=== PATIENT | female | born 1990 | race Caucasian/White ===

== ENCOUNTER 2019-10-19 18:46 | Emergency (ER) | payer MEDICAID ==
[2019-10-19 19:39] LABS: Pregnancy Test - Urine (BHCG) POSITIVE (Negative); Pregu Control Background? CLEAR/WHITE (CLR/WHITE); Pregu Control Bar Appear? YES (CONTROL BAR); Specific Gravity 1.027 (1.002-1.036)
[2019-10-19 19:40] LABS: Bilirubin Negative (Negative); Blood, Urine Negative (Negative); Clarity Clear (Clear); Glucose, Urine (Dipstick) Normal (Negative); Leukocyte 250 Leu/uL (Negative); Nitrite Negative (Negative); Protein, Urine (Dipstick) 10 mg/dL (Neg-Trace); RBC/HPF 0-3 HPF (0-3); Urobilinogen Normal mg/dL (Less than 2)
[2019-10-19] MEDS ORDERED: Ondansetron ODT 4 MG TAB ONE (19:42)
[2019-10-19] MEDS ORDERED: Acetaminophen 325 MG TAB ONE (19:42)
[2019-10-19 19:54] LABS: Bacteria/HPF 2+ HPF (None Seen)
[2019-10-19 21:24] LABS: #Basophils 0.1 thou/uL (0.0-0.2); #Eosinphils 0.2 thou/uL (0.0-0.7); #Lymphocytes 2.2 thou/uL (1.20-3.40); #Neutrophils 8.3 thou/uL (1.40-6.50); %Basophils 0.5 % (0.0-1.0); %Eosinophils 1.7 % (0.0-10.0); %Lymphocytes 18.4 % (21.0-51.0); %Monocytes 8.8 % (0.0-10.0); %Neutrophils 70.6 % (42.0-75.0); Hemoglobin 12.4 g/dL (12.0-16.0); Mean Corpuscular HGB CONC 34.7 g/dL (32.0-36.0); Mean Corpuscular Hemoglobin 29.8 pg (27.0-31.0); Mean Corpuscular Volume 85.8 fL (78.0-98.0); Mean Platelet Volume 7.5 fL (7.4-10.4); Platelet Count 275 thou/uL (130-400); RBC Distribution Width 12.9 % (11.5-14.5); Red Blood Cell (RBC) Count 4.17 mill/uL (4.20-5.40); White Blood Cell (WBC) Count 11.8 thou/uL (4.8-10.8)
--- NOTE | 2019-10-19 21:34 | ULT ---
PELVIC ULTRASOUND: History: Vaginal bleeding. FINDINGS: Real-time imaging of the pelvis shows a single viable intrauterine with crown to rump rafael th measurements of 4.2 cm, corresponding to 11 weeks 1 day. There is a very tiny hypoechoic area josee g the posterior border of the gestational sac, potentially a tiny subchorionic bleed. heart rat e is 168 beats/minute. Right and left ovaries are normal in appearance. DOPPLER EVALUATION WITH SPECTRAL ANALYSIS: Normal flow is shown to both ovaries. IMPRESSION: 1. Single viable intrauterine with crown to rump length measurements corresponding to 11 we eks 1 day. LEORA 05-08-20. 2. Small subchorionic bleed. POS: [facility]
[2019-10-22 00:50] LABS: Chlamydia by PCR Not Detected (NotDetected); GC by PCR Not Detected (NotDetected)
== END 2019-10-19 22:52 | disposition home or self-care (01) ==
LOC: ERS 18:46
DX: O23.01 Infections of kidney in pregnancy, first trimester (principal); O23.591 Infection of other part of genital tract in pregnancy, first trimester; B96.89 Other specified bacterial agents as the cause of diseases classified elsewhere; O98.311 Other infections with a predominantly sexual mode of transmission complicating pregnancy, first trimester; A59.01 Trichomonal vulvovaginitis
CPT/HCPCS: 36415; 76856; 81003; 81015; 81025; 84702; 85025; 86900; 86901; 87086; 87480; 87491; 87510; 87591; 87660; 93976; Q0162

== ENCOUNTER 2019-11-10 19:56 | Emergency (ER) | payer MEDICAID ==
[2019-11-10 20:56] LABS: Bilirubin Negative (Negative); Blood, Urine Negative (Negative); Clarity Clear (Clear); Glucose, Urine (Dipstick) Normal (Negative); Leukocyte 25 Leu/uL (Negative); Nitrite Negative (Negative); Protein, Urine (Dipstick) Negative (Neg-Trace); RBC/HPF 0-3 HPF (0-3); Renal Epithelial 0-3 HPF (None Seen); Urobilinogen Normal mg/dL (Less than 2)
[2019-11-10 21:03] LABS: Bacteria/HPF 2+ HPF (None Seen)
== END 2019-11-10 21:28 | disposition home or self-care (01) ==
LOC: ERS 19:56
DX: O99.342 Other mental disorders complicating pregnancy, second trimester (principal); M25.552 Pain in left hip; O99.89 Other specified diseases and conditions complicating pregnancy, childbirth and the puerperium; F41.9 Anxiety disorder, unspecified; Z3A.14 14 weeks gestation of pregnancy
CPT/HCPCS: 81003; 81015; 99283

== ENCOUNTER 2019-11-23 23:58 | Emergency (ER) | payer MEDICAID ==
[2019-11-24 00:32] LABS: #Basophils 0.1 thou/uL (0.0-0.2); #Eosinphils 0.2 thou/uL (0.0-0.7); #Lymphocytes 2.5 thou/uL (1.20-3.40); #Monocytes 0.8 thou/uL (0.11-0.59); #Neutrophils 6.6 thou/uL (1.40-6.50); %Basophils 0.6 % (0.0-1.0); %Eosinophils 1.7 % (0.0-10.0); %Lymphocytes 24.9 % (21.0-51.0); %Monocytes 7.7 % (0.0-10.0); Hemoglobin 11.6 g/dL (12.0-16.0); Mean Corpuscular Hemoglobin 30.4 pg (27.0-31.0); Mean Corpuscular Volume 86.8 fL (78.0-98.0); Mean Platelet Volume 8.1 fL (7.4-10.4); Platelet Count 251 thou/uL (130-400); RBC Distribution Width 12.6 % (11.5-14.5); Red Blood Cell (RBC) Count 3.82 mill/uL (4.20-5.40); White Blood Cell (WBC) Count 10.1 thou/uL (4.8-10.8)
[2019-11-24] MEDS ORDERED: Acetaminophen 500 MG TAB ONE (00:49)
[2019-11-24 01:11] LABS: Bacteria/HPF None Seen HPF (None Seen); Bilirubin Negative (Negative); Blood, Urine Negative (Negative); Clarity Clear (Clear); Glucose, Urine (Dipstick) Normal (Negative); Leukocyte 250 Leu/uL (Negative); Nitrite Negative (Negative); Protein, Urine (Dipstick) Negative (Neg-Trace); RBC/HPF 0-3 HPF (0-3); Urobilinogen Normal mg/dL (Less than 2); WBC/HPF 21-50 HPF (0-3)
== END 2019-11-24 02:30 | disposition home or self-care (01) ==
LOC: ERS 23:58
DX: O23.41 Unspecified infection of urinary tract in pregnancy, first trimester (principal); O99.341 Other mental disorders complicating pregnancy, first trimester; F41.9 Anxiety disorder, unspecified; Z3A.13 13 weeks gestation of pregnancy
CPT/HCPCS: 36415; 81003; 81015; 84702; 85025; 86900; 86901

== ENCOUNTER 2019-12-12 22:29 | Emergency (ER) | payer MEDICAID ==
[2019-12-12 23:02] LABS: #Basophils 0.1 thou/uL (0.0-0.2); #Eosinphils 0.2 thou/uL (0.0-0.7); #Lymphocytes 2.4 thou/uL (1.20-3.40); #Monocytes 0.9 thou/uL (0.11-0.59); #Neutrophils 7.4 thou/uL (1.40-6.50); %Basophils 0.7 % (0.0-1.0); %Eosinophils 1.7 % (0.0-10.0); %Lymphocytes 21.6 % (21.0-51.0); %Monocytes 8.4 % (0.0-10.0); %Neutrophils 67.7 % (42.0-75.0); Hemoglobin 11.5 g/dL (12.0-16.0); Mean Corpuscular HGB CONC 36.3 g/dL (32.0-36.0); Mean Corpuscular Hemoglobin 31.5 pg (27.0-31.0); Mean Corpuscular Volume 86.8 fL (78.0-98.0); Mean Platelet Volume 7.9 fL (7.4-10.4); Platelet Count 231 thou/uL (130-400); RBC Distribution Width 12.3 % (11.5-14.5); Red Blood Cell (RBC) Count 3.64 mill/uL (4.20-5.40)
[2019-12-12 23:30] LABS: Bacteria/HPF None Seen HPF (None Seen); Bilirubin Negative (Negative); Blood, Urine Negative (Negative); Clarity Turbid (Clear); Glucose, Urine (Dipstick) Normal (Negative); Leukocyte 500 Leu/uL (Negative); Nitrite Negative (Negative); Protein, Urine (Dipstick) 10 mg/dL (Neg-Trace); Sperm/HPF 1+ HPF (None Seen); Urobilinogen Normal mg/dL (Less than 2); WBC/HPF Greater than 50 HPF (0-3)
== END 2019-12-12 23:49 | disposition home or self-care (01) ==
LOC: ERS 22:29
DX: O23.42 Unspecified infection of urinary tract in pregnancy, second trimester (principal); O99.342 Other mental disorders complicating pregnancy, second trimester; F41.9 Anxiety disorder, unspecified; Z3A.19 19 weeks gestation of pregnancy
CPT/HCPCS: 36415; 81003; 81015; 84702; 85025; 99284

== ENCOUNTER → 2019-12-17 | Day surgery (SDC) | payer MEDICAID ==
[~2019-12-17] MED LIST: FLU VACC QS2019-20(6MOS UP)/PF 60 MCG/0.5 ML SYRINGE IM ONE; hydrALAZINE 20 MG/ML VIAL SLOW IVP PRN
[2019-12-18 00:33] VITALS: BP 117/71; TEMP 97.7
[2019-12-18 02:03] LABS: Bacteria/HPF None Seen HPF (None Seen); Bilirubin Negative (Negative); Blood, Urine Negative (Negative); Clarity Clear (Clear); Glucose, Urine (Dipstick) Normal (Negative); Leukocyte 25 Leu/uL (Negative); Nitrite Negative (Negative); Protein, Urine (Dipstick) Negative (Neg-Trace); RBC/HPF 0-3 HPF (0-3); Urobilinogen Normal mg/dL (Less than 2)
--- NOTE | 2019-12-18 08:37 | SS ---
DATE OF ADMISSION: 12/17/2019 DATE OF DISCHARGE: 12/17/2019 CHIEF COMPLAINT: Cramping at home, decreased movement. HISTORY OF PRESENT ILLNESS: Ms. Saunders is a 29-year-old, white, G5, P4, with an estimated date of confinement of 05/08/2020, who presents complaining of cramping and stating that she has not felt her baby move over the last hour. Of note is the fact she has been treated recently for urinary tract infection. She denies associated bleeding or leakage of fluid. PAST OBSTETRICAL HISTORY: Includes 4 vaginal deliveries, all reportedly at term. PAST MEDICAL HISTORY: None. PAST SURGICAL HISTORY: None. CURRENT MEDICATIONS: vitamins and possibly Keflex, although she is uncertain about this. ALLERGIES: INCLUDE SULFA, PENICILLIN, LATEX, AND ROCEPHIN. SOCIAL HISTORY: Denies tobacco, alcohol, or drug use. FAMILY HISTORY: Unremarkable. REVIEW OF SYSTEMS: Denies nausea, vomiting, fever, chills, ruptured membranes, or vaginal bleeding. PHYSICAL EXAMINATION: VITAL SIGNS: In triage, vital signs are stable. She is afebrile. GENERAL: She is in no distress. ABDOMEN: Soft and nontender. Pelvic ultrasound shows biometry consistent with her dates with a viable [place]. Cervical length is 5.4. Urinalysis is negative with the exception of a small amount of leukocyte esterase. On microscopic analysis, no bacteria are seen. ASSESSMENT: 1. 19 and 5/7th week intrauterine . 2. No evidence of acute abdominal pain at this time. PLAN: The patient has been dismissed to home. The nature of movement prior to 20 weeks was discussed with her in detail. She was encouraged to complete the course of her antibiotics for urinary tract infection. She was also given the address of the clinic, so that she can initiate care there as she is from out of town. Job ID: [id number]
--- NOTE | 2019-12-18 09:37 | ULT ---
COMPLETE OB ULTRASOUND GREATER THAN 14 WEEKS: HISTORY: A 19-week intrauterine with cramping. FINDINGS: Single viable intrauterine fetus noted in breech presentation. Placenta is posterior, but without ev idence for overt placenta previa. Cervical length appears unremarkable. heart rate 152 b.p.m. Amniotic fluid is within normal limits. No evidence for abruptio placenta. ANATOMY: Visualized brain, 4-chamber heart, 3-vessel cord, stomach, bladder, kidneys, spine, and extremi ty regions are unremarkable. BIOMETRY: BPD 4.5 cm - 19 weeks 3 days Head circumference 16.8 cm - 19 weeks 3 days Abdominal circumference 14.5 cm - 19 weeks 6 days Femur length 2.8 cm - 18 weeks 4 days IMPRESSION: 1. Single viable intrauterine fetus 19 weeks 2 days. 2. Estimated date of confinement 05/11/2020. 3. Estimated weight 282 gm with estimated weight being at 22th percentile. Breech prese ntation. POS: [facility]
== END ==
LOC: ERS 23:32 → L&D/OP 23:32 → ERS 23:32 → EDSTATUS 23:33
PROVIDERS: ATTEND Obstetrics & Gynecology
DX: O36.8120 Decreased fetal movements, second trimester, not applicable or unspecified (principal); O99.89 Other specified diseases and conditions complicating pregnancy, childbirth and the puerperium; R10.9 Unspecified abdominal pain; Z3A.19 19 weeks gestation of pregnancy; Z88.0 Allergy status to penicillin; Z88.1 Allergy status to other antibiotic agents; Z88.2 Allergy status to sulfonamides; Z91.040 Latex allergy status
CPT/HCPCS: 76805; 81003; 81015

== ENCOUNTER 2020-01-06 23:38 | Day surgery (SDC) | payer MEDICAID ==
[2020-01-07] MEDS ORDERED: hydrALAZINE 20 MG/ML VIAL SLOW IVP PRN (00:19)
--- NOTE | 2020-01-07 00:24 | PDOC.LDHP ---
Labor and Delivery H&P Chief complaint: abdominal pain HPI: 29 y/o at 22w4d presents with cramping for the last 2 days and dizziness. Pain in abdomen is on left side, worse with movement. Dizziness episodes are random and don't occur at any particular time or last for long. She endorses burning with urination, but no frequency or urgency. Denies VB, LOF , or decreased movement. ROS neg for HEENT, cv, pulm, gi, gu, neuro, psych, skin, musculoskeletal or constitutional symptoms other than mentioned above. OB History Details: 4 prior SVDs Current complications: none Past Medical History: None Current medications: pre- vitamins Previous surgical history: none Allergies/Adverse Reactions: Allergies Allergy/AdvReac Type Severity Reaction Status Date / Time ceftriaxone [From Rocephin] Allergy Verified 01/07/20 00:29 latex Allergy Verified 01/07/20 00:29 Penicillins Allergy Verified 01/07/20 00:29 Sulfa (Sulfonamide Allergy Verified 01/07/20 00:29 Antibiotics) Social history: none - Physical Exam Vital signs reviewed and normal: yes General: NAD, resting Heart: RRR Lungs: CTAB Abdomen: gravid Extremeties: no edema FHT: category 1 [place] contractions every: none - Vaginal Exam cm dilated: 0 Effacement: 0% Station: -3 - Assessment 29 y/o at 22w4d with UTI (1+ bacteria and +LE on clean catch with dysuria) and normal discomforts of . +FHTs. - Plan -: D/c home with precautions. Advised to keep all appointments. Given Rx for Macrobid.
[2020-01-07 00:28] VITALS: BMI 31.7
[2020-01-07 00:36] LABS: Bacteria/HPF 1+ HPF (None Seen); Bilirubin Negative (Negative); Blood, Urine Negative (Negative); Clarity Clear (Clear); Glucose, Urine (Dipstick) Normal (Negative); Leukocyte 75 Leu/uL (Negative); Mucous/LPF Rare LPF (<2+); Nitrite Negative (Negative); Protein, Urine (Dipstick) Negative (Neg-Trace); RBC/HPF 0-3 HPF (0-3); Urobilinogen Normal mg/dL (Less than 2); WBC/HPF 0-3 HPF (0-3)
[2020-01-07 00:37] LABS: Urine Culture Reflex No No
[2020-01-07] MEDS ORDERED: FLU VACC QS2019-20(6MOS UP)/PF 60 MCG/0.5 ML SYRINGE IM ONE (01:00)
== END 2020-01-07 01:33 | disposition home health service (06) ==
LOC: L&D/OP 23:38
PROVIDERS: ATTEND Obstetrics & Gynecology
DX: O23.42 Unspecified infection of urinary tract in pregnancy, second trimester (principal); B96.89 Other specified bacterial agents as the cause of diseases classified elsewhere; Z3A.22 22 weeks gestation of pregnancy; Z88.0 Allergy status to penicillin; Z88.1 Allergy status to other antibiotic agents; Z88.2 Allergy status to sulfonamides; Z91.040 Latex allergy status
CPT/HCPCS: 81001; 99282

== ENCOUNTER 2020-01-10 22:42 | Day surgery (SDC) | payer MEDICAID ==
[2020-01-10 23:23] VITALS: BP 110/70; TEMP 98.7; BMI 30.9
[2020-01-10] MEDS ORDERED: hydrALAZINE 20 MG/ML VIAL SLOW IVP PRN (23:43)
--- NOTE | 2020-01-10 23:44 | PDOC.FPROB ---
FMR OB H&P: HPI - History of Present Illness Chief Complaint: Vaginal bleeding Indentification: 29yo at 23.0wks by 11.1wk US History of Present Illness: 29yo at 23.0wks by 11.1wk US presents with vaginal bleeding x2 episodes , initial episode one spot in her underwear this afternoon, the second was this evening 3 spots of blood in her underwear. She had intercourse this morning. Denies abdominal pain. Currently being treated for a UTI with Macrobid. Just moved from [place] and has not established with an OB provider here in [facility] yet. Primary Care Physician: No PNC FMR OB H&P: Current - Care : 5 Para: [id number] Gestational age: 23.0wks Dating Criteria: 11.1wk US - OB Labs Blood type: O RH: positive - First Trimester Ultrasound First trimester: 11.1wks, subchorionic hemorrhage FMR OB H&P: History - Past Medical History PMH: Denies - OB History OB History: 4 prior SVDs - Surgical History Sx History: Denies - Social History Social History: Denies alcohol, tobacco, drug use - Family History Family History: Unremarkable FMR OB H&P: Medications - Current Home Medications: Medication Instructions Recorded Confirmed Type Nitrofurantoin Monohyd/M-Cryst 100 mg PO BID 01/10/20 01/10/20 History [Macrobid] Allergies/Adverse Reactions: Allergies Allergy/AdvReac Type Severity Reaction Status Date / Time ceftriaxone [From Rocephin] Allergy Mild Rash Verified 01/10/20 23:19 latex Allergy Mild Rash Verified 01/10/20 23:19 Penicillins Allergy Mild Rash Verified 01/10/20 23:19 Sulfa (Sulfonamide Allergy Rash Verified 01/10/20 23:19 Antibiotics) FMR OB H&P: ROS - Review of Systems General: denies: fever/chills, fatigue Eyes: denies: vision changes, double vision, scotomas ENT: denies: nasal congestion, rhinorrhea, sore throat Cardiovascular: denies: chest pain, edema Respiratory: denies: cough, shortness of breath Gastrointestinal: reports: nausea. denies: vomiting Genitourinary (Female): reports: vaginal bleeding. denies: dysuria, vaginal discharge, vaginal pain, contractions Integumentary: denies: rash, lesions FMR OB H&P: Vital Signs - Maternal Vital signs: Vital Signs - First Documented Temp Pulse Resp BP 98.7 F 86 18 110/70 01/10/20 23:17 01/10/20 23:17 01/10/20 23:17 01/10/20 23:17 FMR OB H&P: Physical Exam - Physical Exam General: NAD, awake, alert and oriented HEENT: normocephalic and atraumatic, MMM, conjunctiva clear, grossly normal hearing, oropharynx clear Neck: supple, trachea midline Heart: RRR, no murmurs/rubs/gallops General: CTAB, no respiratory distress, no wheezing Abdomen: soft, gravid, fundus(cm), non-tender, bowel sound present Musculoskeletal: normal gait and station, pulses present, no misalignment/ asymmetry, no atrophy Neurological: no focal deficit Skin: no rash, good tugor Lymphatic: no unusual bruising or bleeding, no petechia Psychiatric: intact recent and remote memory, good judgement and insight, normal mood and affect - Pelvic Exam Vulva: normal hair distribution, appropriate [place] stage, no masses, no lesions , no blood Cervix: no masses, no lesions, no blood FMR OB H&P: A/P Disposition: 29yo at 23.0wks by 11.1wk US presents with vaginal bleeding - Likely 2/2 intercourse this AM vs hematuria with UTI being treated. Speculum exam with no gross blood, cervix normal appearance. Abdomen nontender. Will need to establish with OB provider. Given information for [facility] and clinic. Discussion: Date/Time: 01/10/20 0106 This H&P was discussed with Dr. Martin who agrees with the above documentation and plan. Addendum - Attending - Attending Attestation Date/Time: 01/13/20 0020 I personally evaluated the patient and discussed the management with Dr. Castillo I agree with the History, Examination, Assessment and Plan documented above with any addition or exceptions noted below.
[2020-01-11] MEDS ORDERED: FLU VACC QS2019-20(6MOS UP)/PF 60 MCG/0.5 ML SYRINGE IM ONE (09:00)
== END 2020-01-11 00:35 | disposition home or self-care (01) ==
LOC: L&D/OP 22:42
PROVIDERS: ATTEND Obstetrics & Gynecology
DX: O46.92 Antepartum hemorrhage, unspecified, second trimester (principal); Z3A.23 23 weeks gestation of pregnancy; Z88.0 Allergy status to penicillin; Z88.1 Allergy status to other antibiotic agents; Z88.2 Allergy status to sulfonamides; Z91.040 Latex allergy status
CPT/HCPCS: 99283

== ENCOUNTER 2020-01-20 20:42 | Day surgery (SDC) | payer MEDICAID ==
[2020-01-20] MEDS ORDERED: hydrALAZINE 20 MG/ML VIAL SLOW IVP PRN (21:47)
[2020-01-20 22:20] LABS: Bacteria/HPF None Seen HPF (None Seen); Bilirubin Negative (Negative); Blood, Urine Negative (Negative); Clarity Clear (Clear); Glucose, Urine (Dipstick) Normal (Negative); Leukocyte 25 Leu/uL (Negative); Mucous/LPF 1+ LPF (<2+); Nitrite Negative (Negative); Protein, Urine (Dipstick) 20 mg/dL (Neg-Trace); RBC/HPF 0-3 HPF (0-3); Squamous Epithelial 0-3 HPF (0-3); Urobilinogen Normal mg/dL (Less than 2)
--- NOTE | 2020-01-21 11:01 | SS ---
DATE OF ADMISSION: 01/20/2020 DATE OF DISCHARGE: 01/20/2020 LABOR AND DELIVERY TRIAGE NOTE. EVALUATING PHYSICIAN: Ruben Romano MD CHIEF COMPLAINT: Pelvic pressure, occasional urinary frequency. HISTORY OF PRESENT ILLNESS: Ms. Saunders is a 29-year-old white G5, P4, with an estimated date of confinement of 12/09/2019, who presents complaining of intermittent pelvic pressure as well as occasional discomfort with urination. Of note is the fact that she was seen here approximately 10 days ago and was placed on Macrobid for urinary tract infection. Prior to this, she has had no care, but states she has an appointment with Dr. Fannie Castillo on January 29. She denies ruptured membranes or vaginal bleeding. PAST OBSTETRICAL HISTORY: Vaginal delivery x4, all reportedly at term. PAST MEDICAL HISTORY: None. PAST SURGICAL HISTORY: None. CURRENT MEDICATIONS: vitamins. She states she has completed her course of Macrobid. ALLERGIES: SULFA, PENICILLIN, LATEX, ROCEPHIN. SOCIAL HISTORY: Denies tobacco, alcohol, or drug use. FAMILY HISTORY: Unremarkable. REVIEW OF SYSTEMS: Denies nausea, vomiting, fever, chills, recent travel, ruptured membranes or vaginal bleeding. PHYSICAL EXAMINATION: VITAL SIGNS: In triage, her vital signs are stable. She is afebrile. GENERAL: She is pleasant. She is in no acute distress. ABDOMEN: Soft, nontender, and gravid. PELVIC: Shows the cervix to be closed in midposition and uneffaced. The heart tones are positive. No uterine contractions are seen on the monitor. LABORATORY STUDIES: Urinalysis returned showing the urine to be clear, specific gravity of 1.030, trace protein and normal glucose, trace ketones, negative blood, negative nitrites, negative bilirubin, negative urobilinogen, trace leukocyte esterase. On microscopic, there is 0 to 3 rbc's, 11 to 20 wbc's, 0 to 3 squamous cells and no bacteria seen. ASSESSMENT: 1. A 24-week intrauterine . 2. No evidence of residual urinary tract infection. 3. No evidence of labor. PLAN: The patient will be dismissed home. Precautions were reviewed with her in detail. She was instructed to keep herself well hydrated at home and she can return for further symptoms. Job ID: [id number]
[2020-01-21] MEDS ORDERED: FLU VACC QS2019-20(6MOS UP)/PF 60 MCG/0.5 ML SYRINGE IM ONE (21:00)
== END 2020-01-20 22:45 | disposition home or self-care (01) ==
LOC: L&D/OP 20:42
PROVIDERS: ATTEND Obstetrics & Gynecology
DX: O99.89 Other specified diseases and conditions complicating pregnancy, childbirth and the puerperium (principal); R10.2 Pelvic and perineal pain; R35.0 Frequency of micturition; Z3A.24 24 weeks gestation of pregnancy; Z88.0 Allergy status to penicillin; Z88.1 Allergy status to other antibiotic agents; Z88.2 Allergy status to sulfonamides; Z91.040 Latex allergy status
CPT/HCPCS: 81003; 81015; 99282

== ENCOUNTER 2020-01-22 17:29 | Emergency (ER) | payer MEDICAID ==
[2020-01-22] MEDS ORDERED: Acetaminophen 500 MG TAB ONE (17:53)
[2020-01-22] MEDS ORDERED: Lidocaine 1% w/Epinephrine 1:100K 20 ML VIAL ONE (17:53)
== END 2020-01-22 18:44 | disposition home or self-care (01) ==
LOC: ERS 17:29
DX: L72.3 Sebaceous cyst (principal); F41.9 Anxiety disorder, unspecified
CPT/HCPCS: 10060

== ENCOUNTER 2020-02-15 20:50 | Day surgery (SDC) | payer MEDICAID, OTHER ==
[2020-02-15 21:35] VITALS: BMI 33.5
--- NOTE | 2020-02-15 22:22 | PDOC.OBTPN ---
FMR OB Triage PN:Sub - Interval History Chief Complaint: Cramping Indentification: 29 yo F Interval History: Presents for abdominal cramping. Has been going on since 02/05 since ivi FMR OB Triage PN:Obj - Maternal Vital signs: BP: [] HR: [] RR: [] Tmax: [] Pox: []% on [] Wt: [] FMR OB Triage PN:A/P Discussion: Date/Time: 02/15/202217 This H&P was discussed with [] and [] who agree with the above documentation and plan.
[2020-02-15 22:44] LABS: Bilirubin Negative (Negative); Blood, Urine Negative (Negative); Clarity Clear (Clear); Glucose, Urine (Dipstick) Normal (Negative); Leukocyte Negative Leu/uL (Negative); Nitrite Negative (Negative); Protein, Urine (Dipstick) Negative (Neg-Trace); RBC/HPF 0-3 HPF (0-3); Squamous Epithelial 0-3 HPF (0-3); Urobilinogen Normal mg/dL (Less than 2); WBC/HPF 0-3 HPF (0-3)
[2020-02-15 22:52] LABS: Bacteria/HPF 1+ HPF (None Seen); Sperm/HPF Rare HPF (None Seen)
--- NOTE | 2020-02-15 23:14 | PDOC.LDHP ---
Labor and Delivery H&P Chief complaint: other (Cramping) HPI: 29yo at 28.1 wks by LMP and 11.1 wk sono. Pt presents w/ complaint of abdominal cramping. States has been going on since 02/05 when she received a rocephin injection for gonorrhea found on her testing. Pt denies repeated intercourse since that time. Notes she does have an allergy to rocephin but took benedryl after the injection and did not have a rash. Pt denies any LOF, vaginal bleeding/discharge. Reports good FM. Denies any fever, chills, urinary complaints. Notes she has had recurrent UTI's with past pregnancies. Pt is also undergoing treatment of a vulvovaginal candidiasis infection. Denies any diarrhea or change in bowel movements. Denies the cramping feeling like contractions. Denies any other changes. Current gestational age (weeks): 28 (1) Due date: 05/08/20 Grav: 5 Para: 4 Current complications: other (gonorrhea) Abnormal US findings: No Current medications: pre-melinda vitamins, other (vaginal fluconazole) Previous surgical history: none Allergies/Adverse Reactions: Allergies Allergy/AdvReac Type Severity Reaction Status Date / Time ceftriaxone [From Rocephin] Allergy Mild Rash Verified 02/15/20 21:29 latex Allergy Mild Rash Verified 02/15/20 21:29 Penicillins Allergy Mild Rash Verified 02/15/20 21:29 Sulfa (Sulfonamide Allergy Rash Verified 02/15/20 21:29 Antibiotics) Social history: none - Physical Exam General: NAD, resting Heart: RRR Lungs: nonlabored breathing Abdomen: gravid Extremeties: no edema FHT: category 2, variability present [place] contractions every: None - OB Labs Blood type: O RH: positive Antibody Screen: negative HIV: negative RPR: negative HEPSAg: negative Rubella: immune - Assessment Supervision of Normal Third Trimester - Plan -: UA - showed no infections, did have rare sperm despite patient denying any recent intercourse Maintained Cat 2 strip throughout observation and did not have any detectable contractions Pt scheduled to have MARIANELA for gonorrhea infection later this week in follow up Advised adequate fluid hydration, regular movement, BRAT diet for short period of time, heating pads, and tylenol Discussed return precautions Addendum - Attending - Attending Attestation Date/Time: 02/15/20 5717 I personally evaluated the patient and discussed the management with Dr. Lund I agree with the History, Examination, Assessment and Plan documented above with any addition or exceptions noted below - 29yo at 28.1 wks by LMP and 11.1 wk julio presented with abdominal cramping. States has been going on since 02/05 when she received a rocephin injection for gonorrhea found on her testing. Pt denies repeated intercourse since that time. Notes she does have an allergy to rocephin but took benedryl after the injection and did not have a rash. Pt denies any LOF, vaginal bleeding/discharge. Reports good FM. Denies any fever, chills, urinary complaints. Notes she has had recurrent UTI's with past pregnancies. Pt is also undergoing treatment of a vulvovaginal candidiasis infection. Denies any diarrhea or change in bowel movements. Denies the cramping feeling like contractions. Afebrile VSS. FHTs category 1. [place]- no ctx. U/A - 1+ bacteria otherwise negative. A/P: 1) Abdominal cramping - no evidence of labor. Reassured patient; keep follow-up at clinic as scheduled. Continue hydration.
== END 2020-02-15 23:22 | disposition home or self-care (01) ==
LOC: L&D/OP 20:50
PROVIDERS: ATTEND Family Medicine
DX: O99.89 Other specified diseases and conditions complicating pregnancy, childbirth and the puerperium (principal); R10.9 Unspecified abdominal pain; O98.813 Other maternal infectious and parasitic diseases complicating pregnancy, third trimester; B37.3 Candidiasis of vulva and vagina; O98.213 Gonorrhea complicating pregnancy, third trimester; Z3A.28 28 weeks gestation of pregnancy; Z88.0 Allergy status to penicillin; Z88.1 Allergy status to other antibiotic agents; Z88.2 Allergy status to sulfonamides; Z91.040 Latex allergy status
CPT/HCPCS: 81001; 99282

== ENCOUNTER 2020-02-29 20:49 | Day surgery (SDC) | payer OTHER ==
[2020-02-29] MEDS ORDERED: hydrALAZINE 20 MG/ML VIAL SLOW IVP PRN (21:53)
[2020-02-29] MEDS ORDERED: Acetaminophen 325 MG TAB PO SCH ×2 (22:00)
--- NOTE | 2020-02-29 22:03 | PDOC.FPROB ---
FMR OB H&P: HPI - History of Present Illness Chief Complaint: fall History of Present Illness: 29yo @ 30.1wk by 11.1wk julio presents for eval after fall. States she was at usual state of health until about 1999 this evening when she tripped over her 1yr's car seat. Her caught her and she did not fall to the ground. No LOC or hitting of her head, no fall onto abdomen. No pain initially but as since developed a L-sided muscular pain, paraspinal, sharp stabbing and worse with movement, mild radiation to L hip and some tingling of L leg. She has chronic back pain and sciatic pain and this is similar but worse. Worse with movement. Has not tried anything OTC for the pain. Denies any LOF, vaginal bleeding, discharge. No contractions. Endorses good movement. Primary Care Physician: JOSE Wilson FMR OB H&P: Current - Care : 5 Para: 3104 Gestational age: 30.1 Due date: 05/08/20 Dating Criteria: 08.29wk sono - OB Labs Blood type: O RH: positive Antibody Screen: negative HIV: negative RPR: negative HepBsAg: negative Rubella: immune Gonorrhea: negative (initial positive, test of cure negative) Chlamydia: negative A1c: 5.5 FMR OB H&P: History - Past Medical History PMH: none - OB History OB History: H/o PTB at 34 wks, first due to PPROM. Declines [place]. Late to care. - INTERNAL AUDIT CONSULTANT History INTERNAL AUDIT CONSULTANT History: none - Surgical History Sx History: none - Social History Social History: Denies EtOH, Tob, Illicits - Family History Family History: DMII, Thyroid disorder FMR OB H&P: Medications - Current Home Medications: Medication Instructions Recorded Confirmed Type Ferrous Sulfate 1 tab PO DAILY 02/29/20 02/29/20 History Nitrofurantoin Monohyd/M-Cryst 1 tab PO BID 02/29/20 02/29/20 History [Macrobid 100 mg Capsule] Pnv No.95/Ferrous Fum/Folic AC 1 tab PO DAILY 02/29/20 02/29/20 History [ [place]] metroNIDAZOLE [Metronidazole] 1 tab PO BID 02/29/20 02/29/20 History Allergies/Adverse Reactions: Allergies Allergy/AdvReac Type Severity Reaction Status Date / Time ceftriaxone [From Rocephin] Allergy Mild Rash Verified 02/29/20 21:35 latex Allergy Mild Rash Verified 02/29/20 21:35 Penicillins Allergy Mild Rash Verified 02/29/20 21:35 Sulfa (Sulfonamide Allergy Rash Verified 02/29/20 21:35 Antibiotics) FMR OB H&P: ROS - Review of Systems General: denies: fever/chills, weight/appetite/sleep changes, night sweats, fatigue Eyes: denies: vision changes ENT: denies: nasal congestion, rhinorrhea Cardiovascular: denies: chest pain Respiratory: denies: cough, congestion, shortness of breath Gastrointestinal: denies: abdominal pain, cramping, nausea, vomiting Genitourinary (Female): denies: incontinence, vaginal pain, vaginal bleeding, contractions Musculoskeletal: reports: pain, tenderness Neurologic: denies: numbness, syncope, weakness, loss of counsciousness FMR OB H&P: Vital Signs - Maternal Vital signs: BP 122/63, HR 86, T 98 - Heart Tones Baseline: 140 Variability: moderate Acceleration: present Deceleration: absent [place] contractions every: none FMR OB H&P: Physical Exam - Physical Exam General: NAD, awake, alert and oriented HEENT: EOMI, MMM Neck: supple Heart: RRR, normal S1/S2, no murmurs/rubs/gallops, pulses present, no edema General: CTAB, no respiratory distress, good air movement, no rales/rhonchi, no wheezing Abdomen: soft, gravid, non-tender, bowel sound present Musculoskeletal: normal gait and station, other Deviation from normal: TTP Left paraspinal, pinpoint. Negative straight leg. Normal sensation BL. Neurological: no focal deficit Skin: no rash Lymphatic: no unusual bruising or bleeding Psychiatric: intact recent and remote memory, good judgement and insight, normal mood and affect FMR OB H&P: A/P - Problem List (1) Status: Acute Qualifiers: Weeks of gestation: 30 weeks Qualified Code(s): Z3A.30 - 30 weeks gestation of (2) Fall Status: Acute Code(s): W19.XXXA - UNSPECIFIED FALL, INITIAL ENCOUNTER Disposition: 29yo @ 30.1wk by 11.1wk sono presents for eval after fall. #SIUP s/p fall at home, lumbosacral strain - 30.1wk by 11.1wk sono - Reassuring FHT - no contractions, vaginal bleeding/LOF - endorses good movement - h/o chronic back pain and sciatica, similar but worsened sxs - Pain reproducible on L back, msk-type pain no alarm sxs present - rec tylenol with heating pad/icey hot for sxs management, and rest. Return/ED precautions as well as labor precautions given - routine f/u with primary OB as indicated - consider OMT as OP Dispo: Discharged home with conservative therapy for lumbosacral strain and routine precautions. Discussion: Date/Time: 02/29/202200 This H&P was discussed with Dr. Zhang and Dr. Drummond who agree with the above documentation and plan. Addendum - Attending - Attending Attestation Date/Time: 03/08/20 1645 I personally evaluated the patient and discussed the management with Dr. Rios on 02/29/20. I agree with the History, Examination, Assessment and Plan documented above with any addition or exceptions noted below. 29yo @ 30.1wk suffered trip and fall, caught by before any actual trauma but suffered aggravation to her lumbar area, similar to prior lumbar issues she dealt with as high school student. LS paraspinal muscles tender c/w strain. Cat I strip. Stable for d/c home with precautions, exercise. consider OM in clinic if fails to resolve with conservative mgt.
== END 2020-02-29 22:33 | disposition home or self-care (01) ==
LOC: L&D/OP 20:49
PROVIDERS: ATTEND Family Medicine
DX: O9A.213 Injury, poisoning and certain other consequences of external causes complicating pregnancy, third trimester (principal); S39.012A Strain of muscle, fascia and tendon of lower back, initial encounter; Z3A.30 30 weeks gestation of pregnancy; Z79.899 Other long term (current) drug therapy; Z88.0 Allergy status to penicillin; Z88.1 Allergy status to other antibiotic agents; Z88.2 Allergy status to sulfonamides; Z91.040 Latex allergy status; W18.41XA Slipping, tripping and stumbling without falling due to stepping on object, initial encounter
CPT/HCPCS: 99282

== ENCOUNTER 2020-03-18 17:17 | Day surgery (SDC) | payer OTHER ==
[2020-03-18 18:19] VITALS: BMI 34.7
--- NOTE | 2020-03-18 19:00 | PDOC.FPROB ---
FMR OB H&P: HPI - History of Present Illness Chief Complaint: Abdominal and vaginal twinges Indentification: 29 yo @ 32.5 wk by 11.1 wk sono History of Present Illness: 29 yo @ 32.5 wk by 11.1 wk sono presents for evaluation for vaginal pinching. Patient reports vaginal "pinching" occasional. She states it is worse when the baby moves. Reports FM, denies LOF/VB/VD. Primary Care Physician: Luh FMR OB H&P: Current - Care : 5 Para: [id number] Gestational age: 32.5 Due date: 05/08/20 Dating Criteria: 11.1 wk sono - OB Labs Blood type: O RH: positive Antibody Screen: negative HIV: negative RPR: negative HepBsAg: negative Rubella: immune Gonorrhea: negative (initial positive, MARIANELA negative) Chlamydia: negative A1c: 5.5 GBS: unknown FMR OB H&P: History - Past Medical History PMH: none - OB History OB History: H/o PTD at 34 wks, first due to PPROM. Declined Litzy. Late to care. 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: Hx of gonorrhea and chlamydia, sp MARIANELA - Surgical History Sx History: none - Social History Social History: Denie EtOH, Tobacco, drug use - Family History Family History: Father: DM2, Mother: Graves disease/thyroid disease FMR OB H&P: Medications - Current Home Medications: Medication Instructions Recorded Confirmed Type Ferrous Sulfate 1 tab PO DAILY 02/29/20 03/18/20 History Pnv No.95/Ferrous Fum/Folic AC 1 tab PO DAILY 02/29/20 03/18/20 History [ Caplet] Clotrimazole [Clotrimazole 1% 1 appful VAG HS 7 Days #1 tube 03/18/20 Rx Vaginal Cream] Allergies/Adverse Reactions: Allergies Allergy/AdvReac Type Severity Reaction Status Date / Time ceftriaxone [From Rocephin] Allergy Mild Rash Verified 02/29/20 21:35 latex Allergy Mild Rash Verified 02/29/20 21:35 Penicillins Allergy Mild Rash Verified 02/29/20 21:35 Sulfa (Sulfonamide Allergy Rash Verified 02/29/20 21:35 Antibiotics) FMR OB H&P: ROS - Review of Systems General: denies: fever/chills Eyes: reports: others (black spots in vision). denies: eye pain ENT: denies: nasal congestion, rhinorrhea Cardiovascular: denies: chest pain, palpitation Respiratory: denies: cough, congestion, shortness of breath Gastrointestinal: reports: nausea. denies: abdominal pain, vomiting, diarrhea, constipation Genitourinary (Female): reports: vaginal pain. denies: dysuria, hematuria, vaginal discharge, vaginal bleeding Musculoskeletal: reports: pain (hip pain on right, back pain on left after fall. Patient has been seeing OMT), tenderness Neurologic: denies: numbness, weakness Integumentary: denies: itching, rash Breast: denies: lumps, bumps Endocrine: denies: polydipsia, polyuria Psychological: reports: anxiety. denies: depression FMR OB H&P: Vital Signs - Maternal Vital signs: O2 98% on RA P 88 R 18 T 97.9 BP 115/74 - Heart Tones Baseline: 130 Variability: moderate Acceleration: present Deceleration: variable [place] contractions every: none FMR OB H&P: Physical Exam - Physical Exam General: NAD, awake, alert and oriented HEENT: normocephalic and atraumatic, PERRLA, MMM, grossly normal vision, grossly normal hearing Neck: supple, FROM Heart: RRR, normal S1/S2, no murmurs/rubs/gallops, pulses present, no edema General: CTAB, no respiratory distress, good air movement, no rales/rhonchi, no wheezing Abdomen: soft, gravid, non-tender, bowel sound present Musculoskeletal: pulses present, no atrophy Neurological: no focal deficit Skin: no rash, good tugor, capillary refill <2 seconds, no jaundice Lymphatic: no unusual bruising or bleeding, no purpura Psychiatric: intact recent and remote memory, good judgement and insight, normal mood and affect - Pelvic Exam Vulva: normal hair distribution, appropriate preston stage, no masses, no blood, normal rugae Deviation from normal: +chunky white vaginal discharge Cervix: no masses, no lesions, no blood SVE: /high FMR OB H&P: A/P - Problem List (1) Vaginal pain Current Visit: Yes Status: Acute Code(s): R10.2 - PELVIC AND PERINEAL PAIN (2) Current Visit: No Status: Acute Qualifiers: Weeks of gestation: 30 weeks Qualified Code(s): Z3A.30 - 30 weeks gestation of (3) Vaginal candidiasis Current Visit: Yes Status: Acute Code(s): B37.3 - CANDIDIASIS OF VULVA AND VAGINA Discussion: Date/Time: 03/18/201857 29 yo @ 32.5 wk by 11.1 wk julio presents for vaginal pinching. SIUP -VSS, FHTs reactive -counseled to make appointment for visit at [facility] tomorrow, while she is there for an OMT visit -Patient needs fasting labs, discussed that she should go fasting to her OMT appointment tomorrow and have labs afterwards Vaginal candidiasis -Vaginal exam shows chunky vaginal discharge, VP3 sent and was negative -Vaginal Clotrimazole x1 week Hx of PPROM with PVD -Not on litzy; per chart review, patient refused -SVE /high Hx of gonorrhea (this )/chlamydia (in the past) -partner treated as well, no new partners -MARIANELA negative January 2020 Chronic Headaches, unchanged -has been happening this whole and her last -Reports black spots/floaters in vision sometimes with headaches; no changes to the headache -BPs normal -Counseled to use tylenol, hydration for management Discharged patient to home: VP3 negative, per clinical picture sent topical treatment for vaginal candidiasis x1 week. Discussed with patient and discharged to home. Answered all questions. This H&P was discussed with Dr. Slade who agree with the above documentation and plan. Addendum - Attending - Attending Attestation Date/Time: 03/18/202155 I personally evaluated the patient and discussed the management with Dr. Ortega. I agree with the History, Examination, Assessment and Plan documented above with any addition or exceptions noted below.
[2020-03-18] MEDS ORDERED: hydrALAZINE 20 MG/ML VIAL SLOW IVP PRN (19:56)
== END 2020-03-18 21:30 | disposition home or self-care (01) ==
LOC: L&D/OP 17:17
DX: O99.89 Other specified diseases and conditions complicating pregnancy, childbirth and the puerperium (principal); R10.2 Pelvic and perineal pain; R10.9 Unspecified abdominal pain; R51 Headache; O09.213 Supervision of pregnancy with history of pre-term labor, third trimester; Z3A.32 32 weeks gestation of pregnancy; Z79.899 Other long term (current) drug therapy; Z88.0 Allergy status to penicillin; Z88.1 Allergy status to other antibiotic agents; Z88.2 Allergy status to sulfonamides
CPT/HCPCS: 87480; 87510; 87660

== ENCOUNTER 2020-03-28 20:37 | Day surgery (SDC) | payer OTHER ==
[2020-03-28 21:16] VITALS: BP 124/72; TEMP 98.9; BMI 34.7
[2020-03-28] MEDS ORDERED: hydrALAZINE 20 MG/ML VIAL SLOW IVP PRN (21:27)
[2020-03-28] MEDS ORDERED: Lactated Ringer's 1,000 ML IV SCH (21:30)
--- NOTE | 2020-03-28 22:18 | PDOC.FPROB ---
FMR OB H&P: Medications - Current Home Medications: Medication Instructions Recorded Confirmed Type Ferrous Sulfate 1 tab PO DAILY 02/29/20 03/28/20 History Pnv No.95/Ferrous Fum/Folic AC 1 tab PO DAILY 02/29/20 03/28/20 History [ Caplet] Clotrimazole [Clotrimazole 1% 1 appful VAG HS 7 Days #1 tube 03/18/20 03/28/20 Rx Vaginal Cream] Allergies/Adverse Reactions: Allergies Allergy/AdvReac Type Severity Reaction Status Date / Time ceftriaxone [From Rocephin] Allergy Mild Rash Verified 03/28/20 21:17 latex Allergy Mild Rash Verified 03/28/20 21:17 Penicillins Allergy Mild Rash Verified 03/28/20 21:17 Sulfa (Sulfonamide Allergy Rash Verified 03/28/20 21:17 Antibiotics) FMR OB H&P: Vital Signs - Maternal Vital signs: Vital Signs - First Documented Temp Pulse Resp BP 98.9 F 93 20 124/72 03/28/20 21:11 03/28/20 21:11 03/28/20 21:11 03/28/20 21:11 FMR OB H&P: A/P - Problem List (1) Status: Acute Qualifiers: Discussion: Date/Time: 03/28/202217 PCP: Mely HPI: Patient comes in for evaluation of contractions, although she is a difficult historian. She states I dont know what contractions feel like, I did not feel contractions with any of my previous deliveries. She states that she feels her abdomen tightening and then becoming looser. She states that the contractions make her feel winded although she is able to talk through them. She states the pains last for 1-2 minutes at a time, she is not able to quantify the time between these occurrences. She denies ROM or bleeding. She denies discharge, has been continuing to use her clotrimazole cream. She denies any vaginal intercourse or instrumentation in the last 48 hours. Feels baby moving often. Denies FRANCOIS, visual changes, SOB, or swelling. History: OB hx: , all , first at 34 wks 2/2 PPROM PMH: negative PSH: negative Meds: PNV All: penicillin, sulfa, ceftriaxone, latex Soc Hx: denies smoking, alcohol, drugs Fam Hx: denies downs, congenital defects, parents with DM2 and graves GBS: unknown Blood type: O+ Ab screen: negative HIV: neg RPR: neg Hep B: neg GC/CT: positive, with subsequent negative MARIANELA REVIEW OF SYSTEMS: Gen: no fever, chills, or sweats Neuro: no numbness/tingling, no weakness, denies headache ENT: denies congestion Eyes: no visual changes Resp: denies cough, no production, no SOB, no wheeze Card: denies chest pain, no palpitations GI: denies nausea, vomiting, diarrhea : no dysuria, no hematuria Skin: no rash, no erythema Psych: denies hx anxiety/depression Vitals: T: 98.5 R: 18 BP: 123/84 P:67 at: 98% on RA PHYSICAL EXAMINATION: General: NAD, alert and oriented x3 HEENT: EOMI, normal sclera Neck: Supple. Full ROM. Heart/Cardiovascular System: RRR, Cap refill < 3 seconds, no rub, no murmur Lungs/Respiratory System: clear to auscultation bilaterally. No increased work of breathing. Room air. Abdomen/Gastro-Intestinal System: no abdominal tenderness, normal bowel sounds, Gravid Extremities: Warm extremities. No cyanosis or edema. Neuro: No gross deficits appreciated Psychiatry: Awake, Alert and cooperative with exam Skin: no lesions, no rashes Musculoskeletal: Full ROM A/P: This is a 29 yo here for evaluation of contractions FHT: 150 baseline, mod variability, no decels, accels present [place]: contractions q3-4 on arrival, now spaced out # Pre-term labor eval - Sterile spec with no pooling, cervix appeared closed - FFN, amnisure collected - SVE: 3 - Will check cervical length and consider sending FFN based on this result - Will hold amnisure for now as no apparent ROM on spec exam, check SOPHIE - 1 L bolus LR ordered Addendum - Attending - Attending Attestation Date/Time: 03/29/202237 I personally evaluated the patient and discussed the management with Dr. Brien Ortega I agree with the History, Examination, Assessment and Plan documented above with any addition or exceptions noted below - 29 yo @34 weeks presented c/o ctx Denies LOF, VB (+) FM. Afebrile VSS. SVE 1/thick/-3 Category 1 FHTs. [place]-(+) irritability and ctx q2-5 min. USG with cervical length=3.8, vtx. SOPHIE=19. A/P: 1) IUP @34 weeks with contractions- will monitor and recheck in 2 hours. Hydrate. If no change and ctx improve will d/c home with close follow-up.
[2020-03-28] MEDS ORDERED: Morphine 4 MG/ML VIAL ONE (22:49)
[2020-03-28] MEDS ORDERED: Ondansetron ODT 4 MG TAB PO PRN (22:52)
--- NOTE | 2020-03-28 22:54 | ULT ---
Limited Obstetrical Ultrasound INDICATION: Dominant cramping at 34 weeks; evaluate cervix, fluid in growth TECHNIQUE: Grayscale, M-mode Doppler, color Doppler and spectral Doppler images were obtained. Yonatan villagomez is focused on the clinical indication. COMPARISON: Prior obstetrical ultrasound dated December 18, 2019 FINDINGS: GESTATION: Number of gestations: Single. Presentation: Cephalic. heart rate: 144 bpm. Placental location: Maternal left Previa: No evidence for previa. Cervical length: 3.9 cm SOPHIE: 19.3 cm. LIMITED SURVEY: Small echogenic focus is seen within the left ventricle that doesn't appear as bright as bone and may reflect a papillary muscle. Small echogenic focus related to trisomy cannot be entirely excluded. BIOMETRY: Biparietal diameter: 8.97cm, 36 weeks and 2 days, 95th percentile. Head circumference: 33.36 cm, 38 weeks and 1 day, 96 percentile Abdominal circumference: 30.76 cm, 34 weeks and 5 days, 71st percentile Femoral length: 6.67cm, 34 weeks and 2 days, 45th percentile Estimated weight: 2596 g +/- 384g 5 lbs. 12 oz. +/- 14 ounces, 73rd percentile The average gestational age by ultrasound is 35 weeks and 6 dayswith estimated due date of April 26. The estimated dates by clinical data is 34 weeks and 1 daywith estimated due date of May 08, 2020. IMPRESSION: 1. Single live intrauterine gestation with size and dates as above. 2. Cervical length measured between 3. 6-3.8 cm. 3. Small echogenic focus seen within the left ventricle. This does not appear as bright as the surrou nding bone and likely reflects a prominent papillary muscle. Small echogenic cardiac focus cannot be entirely excluded. Follow-up is recommended.
[2020-03-28] MEDS ORDERED: Morphine 4 MG/ML VIAL IM SCH (23:00)
--- NOTE | 2020-03-29 00:14 | PDOC.BPN ---
- Brief Progress Note Patient received Morphine and [place] Feels much better Contractions resolved CL 3.9 cm did not send Ffn 2/2 CL SOPHIE 19.3 EFW 2596, [place] 73% Considered Corticosteroids but will hold off 11/30 recent Lancet publication discussing risk for developmental delay. Does not appear to be in labor at this time. Discussed risks and precautions with patient. US showed possible echogenic foci in the heart Discussed with patient, entered [facility] referral for level II sono in [facility] EMR Patient instructed to follow up in clinic in 1-2 days, discussed importance, she has missed some appointments SVE unchanged Discharged home
== END 2020-03-29 00:30 | disposition home or self-care (01) ==
LOC: L&D/OP 20:37
PROVIDERS: ATTEND Emergency Medicine
DX: O47.03 False labor before 37 completed weeks of gestation, third trimester (principal); Z3A.34 34 weeks gestation of pregnancy; Z88.0 Allergy status to penicillin; Z88.1 Allergy status to other antibiotic agents; Z88.2 Allergy status to sulfonamides; Z91.040 Latex allergy status
CPT/HCPCS: 76815; 87081; 96372; 99284; J2270; Q0162

== ENCOUNTER 2020-03-31 21:24 | Day surgery (SDC) | payer OTHER ==
[2020-03-31 21:59] VITALS: BMI 34.7
--- NOTE | 2020-03-31 22:32 | PDOC.FPROB ---
FMR OB H&P: HPI - History of Present Illness Chief Complaint: Contractions History of Present Illness: Pt is a 29 yo F @ 34.4 wks by 11.1 wk US presents for evaluation of contractions. She states she is having contractions that are 5 minutes a part and last for 2-3 hours. She states that she feels her abdomen tightening and then becoming looser. She feels like the baby moved down 2-3 days ago and now she has hip pain from where baby is sitting. She denies ROM or bleeding. She denies discharge, she finished her clotrimazole cream last night. She denies any vaginal intercourse or instrumentation in the last 48 hours. Feels baby moving often. She denies FRANCOIS, visual changes, SOB, or swelling. Primary Care Physician: CASIMIRO Kee FMR OB H&P: Current - Care : 5 Para: 3104 Gestational age: 34.4 wks Due date: 08.29 Dating Criteria: 05/08/20 - OB Labs Blood type: O RH: positive Antibody Screen: negative HIV: negative RPR: negative HepBsAg: negative Rubella: immune Gonorrhea: negative Chlamydia: negative Pap Smear: 01/30/2020 ASCUS A1c: 5.5 GBS: negative H&H: 10.2/30.2 Platelets: 285 Additional labs: GBS: unknown Blood type: O+ Ab screen: negative HIV: neg RPR: neg Hep B: neg GC/CT: positive, with subsequent negative MARIANELA REVIEW OF SYSTEMS: Gen: no fever, chills, or sweats Neuro: no numbness/tingling, no weakness, denies headache ENT: denies congestion Eyes: no visual changes Resp: denies cough, no production, no SOB, no wheeze Card: denies chest pain, no palpitations GI: denies nausea, vomiting, diarrhea : no dysuria, no hematuria Skin: no rash, no erythema Psych: denies hx anxiety/depression Vitals: T: 98.5 R: 18 BP: 123/84 P:67 at: 98% on RA PHYSICAL EXAMINATION: General: NAD, alert and oriented x3 HEENT: EOMI, normal sclera Neck: Supple. Full ROM. Heart/Cardiovascular System: RRR, Cap refill < 3 seconds, no rub, no murmur Lungs/Respiratory System: clear to auscultation bilaterally. No increased work of breathing. Room air. Abdomen/Gastro-Intestinal System: no abdominal tenderness, normal bowel sounds, Gravid Extremities: Warm extremities. No cyanosis or edema. Neuro: No gross deficits appreciated Psychiatry: Awake, Alert and cooperative with exam Skin: no lesions, no rashes Musculoskeletal: Full ROM FMR OB H&P: History - Past Medical History PMH: Anemia - OB History OB History: 4 , first at 34 wks 2/2 PPROM - SPUDDER History SPUDDER History: 01/30/2020 ASCUS - Surgical History Sx History: None - Social History Social History: Denies tobacco, alcohol, and recreational drugs. - Family History Family History: Father: Juvenile DM, Mother: Grave's Disease FMR OB H&P: Medications - Current Home Medications: Medication Instructions Recorded Confirmed Type Ferrous Sulfate 1 tab PO DAILY 02/29/20 03/31/20 History Pnv No.95/Ferrous Fum/Folic AC 1 tab PO DAILY 02/29/20 03/31/20 History [ Caplet] Clotrimazole [Clotrimazole 1% 1 appful VAG HS 7 Days #1 tube 03/18/20 03/28/20 Rx Vaginal Cream] Allergies/Adverse Reactions: Allergies Allergy/AdvReac Type Severity Reaction Status Date / Time ceftriaxone [From Rocephin] Allergy Mild Rash Verified 03/28/20 21:17 latex Allergy Mild Rash Verified 03/28/20 21:17 Penicillins Allergy Mild Rash Verified 03/28/20 21:17 Sulfa (Sulfonamide Allergy Rash Verified 03/28/20 21:17 Antibiotics) FMR OB H&P: ROS - Review of Systems General: denies: fever/chills Eyes: denies: vision changes ENT: denies: nasal congestion, rhinorrhea, sore throat Cardiovascular: denies: chest pain, edema Respiratory: denies: cough, congestion, shortness of breath Gastrointestinal: reports: constipation. denies: abdominal pain, nausea, vomiting, diarrhea Genitourinary (Female): reports: contractions, vaginal pressure. denies: vaginal discharge, vaginal pain, vaginal bleeding Musculoskeletal: reports: pain (in her hips). denies: tenderness Neurologic: denies: numbness, weakness Integumentary: denies: itching, rash Hematologic/Lymphatic: denies: prolonged or excessive bleeding, enlarged lymph nodes FMR OB H&P: Vital Signs - Maternal Vital signs: HR: 93 BP: 124/72 T: 98.9 - Heart Tones Baseline: 150 Variability: moderate Acceleration: present Deceleration: absent Category: category 1 FMR OB H&P: Physical Exam - Physical Exam General: NAD HEENT: normocephalic and atraumatic, MMM, conjunctiva clear, no scleral icterus , normal nasal mucosa, oropharynx clear, good dention Heart: RRR, normal S1/S2, no murmurs/rubs/gallops, pulses present, no edema General: CTAB, no respiratory distress, good air movement, no rales/rhonchi, no wheezing, no retractions Abdomen: soft, gravid, non-tender, bowel sound present Musculoskeletal: pulses present, FROM in all four extremities Neurological: cranial nerves II through XII intact, no focal deficit Skin: no rash, good tugor Lymphatic: no unusual bruising or bleeding, no purpura, no petechia, no LAD Psychiatric: normal mood and affect - Pelvic Exam SVE: 1/Thick/High FMR OB H&P: A/P - Problem List (1) Current Visit: No Status: Acute Qualifiers: (2) Vaginal pain Current Visit: No Status: Acute Code(s): R10.2 - PELVIC AND PERINEAL PAIN (3) Constipation Current Visit: Yes Status: Acute Code(s): K59.00 - CONSTIPATION, UNSPECIFIED (4) Dehydration Current Visit: Yes Status: Acute Code(s): E86.0 - DEHYDRATION Disposition: Pt is a 29 yo @ 34.4 wks by 11.1 wk US here for contractions. FHT: 150 baseline, mod variability, no decels, accels present [place]: contractions q3-4 on arrival, now spaced out 1. Contractions 2/2 Dehydration * Last visit she had a sterile spec with no pooling, cervix appeared closed * Denies any LOF since then * SVE: * 03/28/20: 1/0/-3 * 03/31/20: 1/Thick/High * She drank fluids and contractions spaced out to every 10 minutes 2. Constipation Counseled on drinking plenty of water * Recommended using Miralax and Ducolax 3. Round Ligament Pain/Vaginal Pressure Discussed how towards the end of it is more common * Recommend taking Tylenol to help with the pain Dispo: D/c home with return precautions. Follow up at [facility] on 04/05. Discussion: Date/Time: 03/31/202229 This H&P was discussed with [] and [] who agree with the above documentation and plan.
[2020-03-31] MEDS ORDERED: hydrALAZINE 20 MG/ML VIAL SLOW IVP PRN (23:10)
== END 2020-03-31 22:19 | disposition home or self-care (01) ==
LOC: L&D/OP 21:24
PROVIDERS: ATTEND Family Medicine
DX: O47.03 False labor before 37 completed weeks of gestation, third trimester (principal); O99.283 Endocrine, nutritional and metabolic diseases complicating pregnancy, third trimester; E86.0 Dehydration; O99.613 Diseases of the digestive system complicating pregnancy, third trimester; K59.00 Constipation, unspecified; O99.013 Anemia complicating pregnancy, third trimester; D64.9 Anemia, unspecified; O99.89 Other specified diseases and conditions complicating pregnancy, childbirth and the puerperium; R10.2 Pelvic and perineal pain; Z3A.34 34 weeks gestation of pregnancy; Z79.899 Other long term (current) drug therapy; Z88.0 Allergy status to penicillin; Z88.1 Allergy status to other antibiotic agents; Z88.2 Allergy status to sulfonamides; Z91.040 Latex allergy status

== ENCOUNTER 2020-04-11 18:23 | Day surgery (SDC) | payer OTHER ==
[2020-04-11 19:13] VITALS: BMI 35.0
[2020-04-11] MEDS ORDERED: hydrALAZINE 20 MG/ML VIAL SLOW IVP PRN (19:37)
--- NOTE | 2020-04-11 19:38 | PDOC.FPROB ---
FMR OB H&P: HPI - History of Present Illness Chief Complaint: vaginal discharge and leakage of fluid Indentification: 29yo @ 36.1 by 11.1wk sono History of Present Illness: 29yo @ 36.1 by 11.1wk julio presents for vaginal discharge and possible loss of fluid. States she had intercourse last night, same partner. Today at approx 1800 she went to restroom to urinate and afterwards noticed clear-white, liquid vaginal discharge that was changed from previous discharge with small specks of red-tinge. She then noticed fluid running down her leg, unable to quantify amount, but no large gush of fluid. Loss of fluid has since subsided. Endorses good movement. No CP, SOB, cough, congestion, fever/chills, n/v, vision changes, FRANCOIS. Does endorse back pain and pelvic pain, possible intermittent contractions but no consistent. Does have history of gonorrhea, stated partner also had and both were treated, she has had MARIANELA negative. Primary Care Physician: JOSE Castillo/Chilango FMR OB H&P: Current - Care : 5 Para: [id number] Gestational age: 36.1 Due date: 05/08/20 Dating Criteria: 11.1wk sono - OB Labs Blood type: O RH: positive Antibody Screen: negative HIV: negative RPR: negative HepBsAg: negative Rubella: immune Gonorrhea: negative (initially positive with MARIANELA negative) Chlamydia: negative A1c: 5.5 FMR OB H&P: History - Past Medical History PMH: none - OB History OB History: H/o PTB @ 34wk, first , due to PPROM. Late to care. Gonorrhea early in with MARIANELA negative. - [employer] [address] [employer] History [address] [employer] History: Gonorrhea - Surgical History Sx History: none - Social History Social History: Denies EtOH, Tob, illicits - Family History Family History: DMII, Thyroid disorder FMR OB H&P: Medications - Current Home Medications: Medication Instructions Recorded Confirmed Type Ferrous Sulfate 1 tab PO DAILY 02/29/20 04/11/20 History Pnv No.95/Ferrous Fum/Folic AC 1 tab PO DAILY 02/29/20 04/11/20 History [ Caplet] Allergies/Adverse Reactions: Allergies Allergy/AdvReac Type Severity Reaction Status Date / Time ceftriaxone [From Rocephin] Allergy Mild Rash Verified 03/28/20 21:17 latex Allergy Mild Rash Verified 03/28/20 21:17 Penicillins Allergy Mild Rash Verified 03/28/20 21:17 Sulfa (Sulfonamide Allergy Rash Verified 03/28/20 21:17 Antibiotics) FMR OB H&P: ROS - Review of Systems General: denies: fever/chills, fatigue, recent trauma Eyes: denies: vision changes, double vision, scotomas ENT: denies: nasal congestion, rhinorrhea, sore throat Cardiovascular: denies: chest pain, palpitation, edema Respiratory: denies: cough, congestion, shortness of breath Gastrointestinal: denies: abdominal pain, nausea, vomiting, diarrhea, constipation Genitourinary (Female): reports: vaginal discharge, vaginal pain. denies: incontinence, dysuria, hesitancy, vaginal bleeding, contractions, vaginal pressure Musculoskeletal: reports: pain, stiffness Neurologic: denies: numbness, weakness, headache Integumentary: denies: rash FMR OB H&P: Vital Signs - Maternal Vital signs: RR 12, HR 80, BP 110s/80s - Heart Tones Baseline: 140 Variability: moderate Acceleration: present Deceleration: absent Category: category 1 [place] contractions every: none FMR OB H&P: Physical Exam - Physical Exam General: NAD, awake, alert and oriented HEENT: normocephalic and atraumatic, PERRLA, EOMI, MMM, conjunctiva clear, grossly normal vision, grossly normal hearing Neck: supple, trachea midline Heart: RRR, normal S1/S2, no murmurs/rubs/gallops, pulses present, no edema General: CTAB, no respiratory distress, good air movement, no rales/rhonchi, no wheezing Abdomen: soft, gravid, non-tender, bowel sound present Musculoskeletal: normal gait and station, FROM in all four extremities Neurological: no focal deficit Skin: no rash Psychiatric: intact recent and remote memory, good judgement and insight, normal mood and affect - Pelvic Exam Vulva: no lesions, no blood, normal rugae Deviation from normal: milky-white vaginal discharge Cervix: no masses, no lesions, no blood Deviation from normal: milky-white vaginal discharge, no LOF from cervix with valsalva FMR OB H&P: A/P - Problem List (1) Vaginal discharge during Current Visit: Yes Status: Acute Code(s): O26.899 - OTH RELATED CONDITIONS, UNSPECIFIED TRIMESTER; N89.8 - OTHER SPECIFIED NONINFLAMMATORY DISORDERS OF VAGINA (2) Current Visit: Yes Status: Acute Qualifiers: Weeks of gestation: 36 weeks Qualified Code(s): Z3A.36 - 36 weeks gestation of Disposition: 29yo @ 36.1 by 11.1wk julio presents for vaginal discharge and possible LOF #SIUP, 36.1wk, vaginal discharge and possible LOF - Recent sexual intercourse last night, long-time partner - H/o Gonorrhea with MARIANELA negative earlier in - Leakage of fluid on leg after urination with associated white discharge - Sterile spec exam with no significant pooling of clear fluid, no loss of cervical fluid with valsalva - milky-white vaginal discharge noted] - GC/C and VP3 obtained - straight cath UA obtained and negative - Amnisure negative - Reassuring FHT with accels, no deccels, baseline 140, no contractions - unable to obtain GBS due to iodine cleaning for cath UA, has appointment 04/14 at clinic to discuss IOL and obtain GBS swab. Dispo: No pooling on spec exam, amnisure negative, low likelihood of SROM. Reassuring FHT with no signs of active labor. Suspect infection vs normal discharge and possible loss of urine. GC/C and VP3 pending, will follow. Discharge home with labor precautions and routine OB follow up. Discussion: Date/Time: 04/11/201937 This H&P was discussed with Dr. Steele and Dr. Drummond who agree with the above documentation and plan.
[2020-04-11 19:42] LABS: Amnisure Internal Control QC ACCEPTABLE (ACCEPTABLE); Amnisure Test No Membranes Rupture (No Rupture)
[2020-04-11 20:13] LABS: Bacteria/HPF None Seen HPF (None Seen); Bilirubin Negative (Negative); Blood, Urine Negative (Negative); Clarity Clear (Clear); Glucose, Urine (Dipstick) Normal (Negative); Leukocyte Negative Leu/uL (Negative); Nitrite Negative (Negative); Protein, Urine (Dipstick) Negative (Neg-Trace); RBC/HPF 0-3 HPF (0-3); Squamous Epithelial None Seen HPF (0-3); Urobilinogen Normal mg/dL (Less than 2); WBC/HPF 0-3 HPF (0-3)
[2020-04-11 20:15] LABS: Urine Culture Reflex No No
[2020-04-13 19:25] LABS: Chlamydia by PCR Not Detected (NotDetected); GC by PCR Not Detected (NotDetected)
--- NOTE | 2020-04-15 11:01 | PDOC.BPN ---
- Brief Progress Note phone number in chart not functioning tried to call regarding negative VP3, CT/CT Patient should follow up in clinic as scheduled
== END 2020-04-11 20:40 | disposition home or self-care (01) ==
LOC: L&D/OP 18:23
PROVIDERS: ATTEND Student in an Organized Health Care Education/Training Program
DX: O26.893 Other specified pregnancy related conditions, third trimester (principal); N89.8 Other specified noninflammatory disorders of vagina; O09.213 Supervision of pregnancy with history of pre-term labor, third trimester; Z3A.36 36 weeks gestation of pregnancy; Z79.899 Other long term (current) drug therapy; Z88.0 Allergy status to penicillin; Z88.1 Allergy status to other antibiotic agents; Z88.2 Allergy status to sulfonamides; Z91.040 Latex allergy status
CPT/HCPCS: 51701; 81001; 84112; 87480; 87491; 87510; 87591; 87660; 99285

== ENCOUNTER 2020-04-27 15:41 | Day surgery (SDC) | payer OTHER ==
[2020-04-27 16:15] VITALS: BMI 36.0
[2020-04-27] MEDS ORDERED: hydrALAZINE 20 MG/ML VIAL SLOW IVP PRN (16:22)
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
[2020-04-27] MEDS ORDERED: Ondansetron ODT 8 MG TAB SL SCH (16:30)
[2020-04-27] MEDS ORDERED: Acetaminophen 500 MG TAB PO SCH (17:15)
--- NOTE | 2020-04-27 19:42 | PDOC.EVN ---
Event Note - Event Note Event Note: Cervix recheck completed at 1915. Cervix dilated to 3, 50% effected, 3+ posterior. Previously 2, 50%, 3+ at 1630. Patient denies consistent contractions. She states she wishes to go home and feels confident in her ability to return to the hospital when contractions begin to occur consistently. Return precautions discussed.
== END 2020-04-27 20:10 | disposition home or self-care (01) ==
LOC: L&D/OP 15:41
PROVIDERS: ATTEND Emergency Medicine
DX: O47.1 False labor at or after 37 completed weeks of gestation (principal); Z3A.38 38 weeks gestation of pregnancy; Z79.899 Other long term (current) drug therapy; Z88.0 Allergy status to penicillin; Z88.1 Allergy status to other antibiotic agents; Z88.2 Allergy status to sulfonamides; Z91.040 Latex allergy status
CPT/HCPCS: 99283; Q0162

== ENCOUNTER 2020-04-30 07:27 | Outpatient (CLI) | payer OTHER ==
[2020-05-01 12:17] LABS: SARS-CoV-2 MS2 Positive; SARS-CoV-2 N Gene Negative; SARS-CoV-2 S Gene Negative; SARS-CoV-2 orf1ab Negative
== END 2020-04-30 07:28 | disposition home or self-care (01) ==
LOC: LABSCS 07:27
PROVIDERS: ATTEND Family Medicine
DX: Z01.812 Encounter for preprocedural laboratory examination (principal); Z11.59 Encounter for screening for other viral diseases
CPT/HCPCS: 87635; U0003

== ENCOUNTER 2020-05-11 19:54 | Emergency (ER) | payer OTHER ==
[2020-05-11 20:42] LABS: #Basophils 0.1 thou/uL (0.0-0.2); #Eosinphils 0.5 thou/uL (0.0-0.7); #Lymphocytes 2.1 thou/uL (1.20-3.40); #Monocytes 0.7 thou/uL (0.11-0.59); #Neutrophils 5.5 thou/uL (1.40-6.50); %Basophils 0.7 % (0.0-1.0); %Eosinophils 5.3 % (0.0-10.0); %Lymphocytes 23.6 % (21.0-51.0); %Monocytes 8.3 % (0.0-10.0); %Neutrophils 62.2 % (42.0-75.0); Hemoglobin 11.1 g/dL (12.0-16.0); Mean Corpuscular HGB CONC 32.4 g/dL (32.0-36.0); Mean Corpuscular Hemoglobin 25.8 pg (27.0-31.0); Mean Corpuscular Volume 79.7 fL (78.0-98.0); Mean Platelet Volume 7.5 fL (7.4-10.4); Platelet Count 395 thou/uL (130-400); RBC Distribution Width 14.2 % (11.5-14.5); Red Blood Cell (RBC) Count 4.31 mill/uL (4.20-5.40); White Blood Cell (WBC) Count 8.8 thou/uL (4.8-10.8)
[2020-05-11 21:46] LABS: Bilirubin Negative (Negative); Blood, Urine 3+ (Negative); Clarity Turbid (Clear); Glucose, Urine (Dipstick) Normal (Negative); Ketone, Urine Negative (Negative); Leukocyte 250 Leu/uL (Negative); Mucous/LPF Rare LPF (<2+); Nitrite Negative (Negative); Protein, Urine (Dipstick) 50 mg/dL (Neg-Trace); RBC/HPF Greater than 50 HPF (0-3); Specific Gravity, Urine 1.031 (1.002-1.036); Urobilinogen Normal mg/dL (Less than 2); WBC/HPF Greater than 50 HPF (0-3); pH, Urine 5.5 (5.0-9.0)
[2020-05-11 21:51] LABS: Bacteria/HPF 3+ HPF (None Seen)
--- NOTE | 2020-05-12 08:30 | ULT ---
PELVIC ULTRASOUND: INDICATION: Vaginal delivery 1 week ago. Persistent bleeding. FINDINGS: The uterus is prominent consistent with state. Endometrium is mildly thickening. No defi nite evidence of retained products of gestation. Both ovaries are identified and appear unremarkable. Color Doppler with spectral analysis demonstrat es blood flow to both ovaries. IMPRESSION: uterus. The endometrium is mildly prominent with some blood in the endometrial cavity. N o definite retained products of gestation seen by ultrasound. POS: AGW
== END 2020-05-11 22:59 | disposition home or self-care (01) ==
LOC: ERS 19:54
DX: O72.2 Delayed and secondary postpartum hemorrhage (principal); O99.345 Other mental disorders complicating the puerperium; F41.9 Anxiety disorder, unspecified; O99.03 Anemia complicating the puerperium; Z79.1 Long term (current) use of non-steroidal anti-inflammatories (NSAID)
CPT/HCPCS: 36415; 76856; 81003; 81015; 85025; 86850; 86900; 86901

== ENCOUNTER 2020-07-07 18:50 | Emergency (ER) | payer OTHER ==
[2020-07-07 19:35] LABS: #Basophils 0.1 thou/uL (0.0-0.2); #Eosinphils 0.3 thou/uL (0.0-0.7); #Lymphocytes 2.3 thou/uL (1.20-3.40); #Monocytes 0.5 thou/uL (0.11-0.59); %Basophils 0.8 % (0.0-1.0); %Eosinophils 3.5 % (0.0-10.0); %Lymphocytes 28.2 % (21.0-51.0); %Monocytes 6.1 % (0.0-10.0); %Neutrophils 61.4 % (42.0-75.0); Hemoglobin 11.8 g/dL (12.0-16.0); Mean Corpuscular Hemoglobin 27.5 pg (27.0-31.0); Mean Platelet Volume 8.1 fL (7.4-10.4); Platelet Count 289 thou/uL (130-400); RBC Distribution Width 15.5 % (11.5-14.5); Red Blood Cell (RBC) Count 4.29 mill/uL (4.20-5.40); White Blood Cell (WBC) Count 8.1 thou/uL (4.8-10.8)
[2020-07-07] MEDS ORDERED: Ondansetron ODT 4 MG TAB ONE (19:41)
[2020-07-07 20:04] LABS: ALT (SGPT) 24 U/L (8-55); AST (SGOT) 13 U/L (5-34); Alkaline Phosphatase 107 U/L (40-110); Anion Gap 14 mmol/L (10-20); BUN (Urea Nitrogen) 17 mg/dL (7.0-18.7); Bilirubin, Total 0.2 mg/dL (0.2-1.2); Calc. Creatinine Clearance 0 mL/min (70-130); Calcium 8.8 mg/dL (7.8-10.44); Carbon Dioxide 23 mmol/L (22-29); Chloride 106 mmol/L (98-107); Estimated GFR-MDRD 75; Globulin 3.2 g/dL (2.4-3.5); Glucose 108 mg/dL (70-105); Lipase 38 U/L (8-78); Potassium 4.3 mmol/L (3.5-5.1); Protein, Total 7.2 g/dL (6.0-8.3); Sodium 139 mmol/L (136-145)
[2020-07-07] MEDS ORDERED: Ketorolac Tromethamine 30 MG/ML VIAL ONE (20:04)
[2020-07-07 20:33] LABS: Pregnancy Test - Urine (BHCG) Negative (Negative); Specific Gravity 1.019 (1.002-1.036)
[2020-07-07 20:34] LABS: Pregu Control Background? CLEAR/WHITE (CLR/WHITE); Pregu Control Bar Appear? YES (CONTROL BAR)
[2020-07-07 20:35] LABS: Bilirubin Negative (Negative); Blood, Urine 3+ (Negative); Clarity Extra Turbid (Clear); Glucose, Urine (Dipstick) Normal (Negative); Ketone, Urine Negative (Negative); Leukocyte 75 Leu/uL (Negative); Nitrite Negative (Negative); Protein, Urine (Dipstick) 30 mg/dL (Neg-Trace); RBC/HPF Greater than 50 HPF (0-3); Specific Gravity, Urine 1.019 (1.002-1.036); Urobilinogen Normal mg/dL (Less than 2)
[2020-07-07 20:37] LABS: Bacteria/HPF 1+ HPF (None Seen)
== END 2020-07-07 20:59 | disposition home or self-care (01) ==
LOC: ERS 18:50
DX: N39.0 Urinary tract infection, site not specified (principal); R11.2 Nausea with vomiting, unspecified; F41.9 Anxiety disorder, unspecified; Z87.891 Personal history of nicotine dependence
CPT/HCPCS: 36415; 80053; 81003; 81015; 81025; 83690; 85025; 96372; 99284; J1885; Q0162

== ENCOUNTER 2020-08-23 13:21 | Emergency (ER) | payer OTHER ==
[2020-08-23] MEDS ORDERED: Lidocaine Viscous Sol 2% 15 ml UD Cup ONE (14:21)
== END 2020-08-23 14:54 | disposition home or self-care (01) ==
LOC: ERS 13:21
DX: J02.9 Acute pharyngitis, unspecified (principal); D64.9 Anemia, unspecified; F41.9 Anxiety disorder, unspecified; F17.210 Nicotine dependence, cigarettes, uncomplicated
CPT/HCPCS: 87081; 87430; 99283

== ENCOUNTER 2020-09-05 21:29 | Emergency (ER) | payer OTHER ==
--- NOTE | 2020-09-05 22:26 | CT ---
CT BRAIN WITHOUT CONTRAST: HISTORY: Injury, headache FINDINGS: No evidence of acute infarct, hemorrhage, midline shift or abnormal extra-axial fluid collections is seen. The ventricular size is appropriate and the basilar cisterns are patent. The bony calvarium is intact. The visualized paranasal sinuses and mastoid air cells are well aerated. There is a small right frontal scalp contusion and adjacent laceration. IMPRESSION: No CT evidence of acute intracranial process.
[2020-09-05] MEDS ORDERED: Lidocaine 1% w/Epinephrine 1:100K 20 ML VIAL ONE (22:49)
[2020-09-05] MEDS ORDERED: Morphine 4 MG/ML VIAL ONE (22:52)
[2020-09-05] MEDS ORDERED: Boostrix 0.5 ML (Tdap) VIAL ONE (23:31)
[2020-09-05] MEDS ORDERED: diphenhydrAMINE 25 MG CAP ONE ×2 (23:35→23:36)
== END 2020-09-05 23:40 | disposition home or self-care (01) ==
LOC: ERS 21:29
DX: S06.0X9A Concussion with loss of consciousness of unspecified duration, initial encounter (principal); S01.01XA Laceration without foreign body of scalp, initial encounter; D64.9 Anemia, unspecified; F41.9 Anxiety disorder, unspecified; F17.210 Nicotine dependence, cigarettes, uncomplicated; W01.198A Fall on same level from slipping, tripping and stumbling with subsequent striking against other object, initial encounter
CPT/HCPCS: 70450; 90715; 96374; J2270; Q0163

== ENCOUNTER 2020-09-12 10:15 | Emergency (ER) | payer OTHER | END 2020-09-12 12:35 | disposition left against medical advice (07) | LOC: ERS 10:15 | DX: Z53.21 Procedure and treatment not carried out due to patient leaving prior to being seen by health care provider (principal) ==

== ENCOUNTER 2020-09-12 14:27 | Emergency (ER) | payer OTHER ==
[2020-09-12] MEDS ORDERED: Lidocaine 4% Cream 5 GM TUBE w/ Tegaderm ONE (15:04)
[2020-09-12] MEDS ORDERED: Ibuprofen 200 MG TAB ONE (15:04)
== END 2020-09-12 16:10 | disposition home or self-care (01) ==
LOC: ERS 14:27
DX: S01.01XD Laceration without foreign body of scalp, subsequent encounter (principal); F41.9 Anxiety disorder, unspecified; F17.210 Nicotine dependence, cigarettes, uncomplicated; X58.XXXD Exposure to other specified factors, subsequent encounter

== ENCOUNTER 2020-11-06 22:46 | Emergency (ER) | payer OTHER ==
[2020-11-06 23:15] LABS: Bilirubin Negative (Negative); Blood, Urine Negative (Negative); Clarity Clear (Clear); Glucose, Urine (Dipstick) Normal (Negative); Ketone, Urine Negative (Negative); Leukocyte 250 Leu/uL (Negative); Mucous/LPF Rare LPF (<2+); Nitrite Negative (Negative); Pregnancy Test - Urine (BHCG) Negative (Negative); Pregu Control Background? CLEAR/WHITE (CLR/WHITE); Pregu Control Bar Appear? YES (CONTROL BAR); Protein, Urine (Dipstick) Negative (Neg-Trace); RBC/HPF 0-3 HPF (0-3); Specific Gravity 1.006 (1.002-1.036); Specific Gravity, Urine 1.006 (1.002-1.036); Urobilinogen Normal mg/dL (Less than 2); pH, Urine 5.5 (5.0-9.0)
[2020-11-06] MEDS ORDERED: cefTRIAXone\\ROCEPHIN 500 MG VIAL ONE (23:16)
[2020-11-06] MEDS ORDERED: diphenhydrAMINE 25 MG CAP ONE ×2 (23:16→23:21)
[2020-11-06] MEDS ORDERED: Sterile Water 10 ML ONE (23:17)
[2020-11-06 23:24] LABS: Bacteria/HPF 1+ HPF (None Seen)
[2020-11-07 20:24] LABS: Chlam.trachomatis by PCR,Urine DETECTED (NotDetected)
== END 2020-11-06 23:55 | disposition home or self-care (01) ==
LOC: ERS 22:46
DX: Z20.2 Contact with and (suspected) exposure to infections with a predominantly sexual mode of transmission (principal); F17.210 Nicotine dependence, cigarettes, uncomplicated
CPT/HCPCS: 81015; 81025; 87086; 87491; 87591; 96372; 99283; J0696; Q0163

== ENCOUNTER 2020-11-16 18:46 | Emergency (ER) | payer OTHER ==
[2020-11-16 19:06] LABS: Bilirubin Negative (Negative); Blood, Urine 2+ (Negative); Clarity Clear (Clear); Glucose, Urine (Dipstick) Normal (Negative); Ketone, Urine Negative (Negative); Leukocyte 75 Leu/uL (Negative); Nitrite Negative (Negative); Pregnancy Test - Urine (BHCG) Negative (Negative); Pregu Control Background? CLEAR/WHITE (CLR/WHITE); Pregu Control Bar Appear? YES (CONTROL BAR); Protein, Urine (Dipstick) Negative (Neg-Trace); RBC/HPF 0-3 HPF (0-3); Specific Gravity 1.004 (1.002-1.036); Specific Gravity, Urine 1.004 (1.002-1.036); Urobilinogen Normal mg/dL (Less than 2)
[2020-11-16 19:07] LABS: Bacteria/HPF 1+ HPF (None Seen)
== END 2020-11-16 20:13 | disposition home or self-care (01) ==
LOC: ERS 18:46
DX: N39.0 Urinary tract infection, site not specified (principal); F17.210 Nicotine dependence, cigarettes, uncomplicated
CPT/HCPCS: 81003; 81015; 81025; 99284

== ENCOUNTER 2020-12-25 14:44 | Emergency (ER) | payer OTHER ==
[2020-12-26 04:28] LABS: SARS-CoV-2 PCR by NAA Not Detected (NotDetected)
== END 2020-12-25 15:10 | disposition home or self-care (01) ==
LOC: ERS 14:44
DX: J02.9 Acute pharyngitis, unspecified (principal); Z20.822 Contact with and (suspected) exposure to COVID-19; D64.9 Anemia, unspecified; F17.210 Nicotine dependence, cigarettes, uncomplicated; F17.290 Nicotine dependence, other tobacco product, uncomplicated
CPT/HCPCS: 87081; 87430; 87635; 99283; U0003; U0005

== ENCOUNTER 2020-12-31 14:21 | Emergency (ER) | payer OTHER | END 2020-12-31 15:50 | disposition home or self-care (01) | LOC: ERS 14:21 | DX: B34.9 Viral infection, unspecified (principal); D64.9 Anemia, unspecified; F17.210 Nicotine dependence, cigarettes, uncomplicated | CPT/HCPCS: 99281 ==

== ENCOUNTER 2021-02-01 12:44 | Emergency (ER) | payer MEDICAID, OTHER, SELFPAY ==
[2021-02-01] MEDS ORDERED: Proparacaine 0.5% Opth 15 ML BOT ONE (14:49)
[2021-02-01] MEDS ORDERED: Fluorescein Opthalmic Strip ONE (14:49)
== END 2021-02-01 15:12 | disposition home or self-care (01) ==
LOC: ERS 12:44
DX: S05.01XA Injury of conjunctiva and corneal abrasion without foreign body, right eye, initial encounter (principal); D64.9 Anemia, unspecified; F17.210 Nicotine dependence, cigarettes, uncomplicated; X58.XXXA Exposure to other specified factors, initial encounter
CPT/HCPCS: 99283

== ENCOUNTER 2021-02-23 23:45 | Emergency (ER) | payer MEDICAID ==
[2021-02-24 00:08] LABS: Pregnancy Test - Urine (BHCG) Negative (Negative); Pregu Control Background? CLEAR/WHITE (CLR/WHITE); Pregu Control Bar Appear? YES (CONTROL BAR)
[2021-02-24 00:12] LABS: Bilirubin Negative (Negative); Blood, Urine Negative (Negative); Clarity Clear (Clear); Glucose, Urine (Dipstick) Normal (Negative); Ketone, Urine Negative (Negative); Leukocyte 25 Leu/uL (Negative); Nitrite Negative (Negative); Protein, Urine (Dipstick) Negative (Neg-Trace); RBC/HPF 0-3 HPF (0-3); Specific Gravity, Urine 1.007 (1.002-1.036); Urobilinogen Normal mg/dL (Less than 2)
[2021-02-24 00:13] LABS: Bacteria/HPF Rare-Few HPF (None Seen); Specific Gravity 1.007 (1.002-1.036); Squamous Epithelial 0-3 HPF (0-3); WBC/HPF 0-3 HPF (0-3)
[2021-02-24 00:22] LABS: #Basophils 0.1 thou/uL (0.0-0.2); #Eosinphils 0.2 thou/uL (0.0-0.7); #Lymphocytes 2.2 thou/uL (1.20-3.40); #Monocytes 0.6 thou/uL (0.11-0.59); #Neutrophils 6.4 thou/uL (1.40-6.50); %Basophils 0.8 % (0.0-1.0); %Eosinophils 2.5 % (0.0-10.0); %Monocytes 6.5 % (0.0-10.0); %Neutrophils 67.2 % (42.0-75.0); Hemoglobin 12.2 g/dL (12.0-16.0); Mean Corpuscular HGB CONC 34.2 g/dL (32.0-36.0); Mean Corpuscular Hemoglobin 28.9 pg (27.0-31.0); Mean Corpuscular Volume 84.4 fL (78.0-98.0); Mean Platelet Volume 7.9 fL (7.4-10.4); Platelet Count 281 thou/uL (130-400); RBC Distribution Width 12.9 % (11.5-14.5); Red Blood Cell (RBC) Count 4.24 mill/uL (4.20-5.40); White Blood Cell (WBC) Count 9.6 thou/uL (4.8-10.8)
[2021-02-24 00:41] LABS: ALT (SGPT) 11 U/L (8-55); AST (SGOT) 13 U/L (5-34); Albumin 4.1 g/dL (3.5-5.0); Alkaline Phosphatase 98 U/L (40-110); Anion Gap 13 mmol/L (10-20); BUN (Urea Nitrogen) 8 mg/dL (7.0-18.7); Bilirubin, Total 0.3 mg/dL (0.2-1.2); Calc. Creatinine Clearance 0 mL/min (70-130); Calcium 9.1 mg/dL (7.8-10.44); Carbon Dioxide 24 mmol/L (22-29); Chloride 105 mmol/L (98-107); Glucose 133 mg/dL (70-105); Potassium 3.5 mmol/L (3.5-5.1); Protein, Total 7.1 g/dL (6.0-8.3); Sodium 138 mmol/L (136-145)
[2021-02-24] MEDS ORDERED: Ondansetron PF 4 MG/2 ML Vial ONE (00:48)
[2021-02-24] MEDS ORDERED: Ketorolac Tromethamine 30 MG/ML VIAL ONE (00:48)
== END 2021-02-24 01:53 | disposition home or self-care (01) ==
LOC: ERS 23:45
DX: K52.9 Noninfective gastroenteritis and colitis, unspecified (principal); J45.909 Unspecified asthma, uncomplicated; F17.290 Nicotine dependence, other tobacco product, uncomplicated
CPT/HCPCS: 36415; 80053; 81003; 81015; 81025; 85025; 96374; 96375; J1885; J2405

== ENCOUNTER 2021-03-06 11:28 | Emergency (ER) | payer MEDICAID ==
[2021-03-06 12:05] LABS: Bilirubin Negative (Negative); Blood, Urine Negative (Negative); Clarity Turbid (Clear); Glucose, Urine (Dipstick) Normal (Negative); Ketone, Urine Negative (Negative); Leukocyte 250 Leu/uL (Negative); Nitrite Negative (Negative); Protein, Urine (Dipstick) 10 mg/dL (Neg-Trace); RBC/HPF 0-3 HPF (0-3); Specific Gravity, Urine 1.019 (1.002-1.036); Squamous Epithelial Greater than 50 HPF (0-3); Urobilinogen Normal mg/dL (Less than 2); pH, Urine 5.5 (5.0-9.0)
[2021-03-06 12:06] LABS: Bacteria/HPF 1+ HPF (None Seen); Pregnancy Test - Urine (BHCG) POSITIVE (Negative); Pregu Control Background? CLEAR/WHITE (CLR/WHITE); Pregu Control Bar Appear? YES (CONTROL BAR); Specific Gravity 1.019 (1.002-1.036)
[2021-03-06] MEDS ORDERED: Ondansetron ODT 4 MG TAB ONE (12:35)
== END 2021-03-06 12:45 | disposition home or self-care (01) ==
LOC: ERS 11:28
DX: O99.891 Other specified diseases and conditions complicating pregnancy (principal); R10.2 Pelvic and perineal pain; R11.0 Nausea; Z3A.01 Less than 8 weeks gestation of pregnancy; Z87.891 Personal history of nicotine dependence
CPT/HCPCS: 81003; 81015; 81025; 87086; Q0162

== ENCOUNTER 2021-03-06 14:33 | Emergency (ER) | payer MEDICAID ==
[2021-03-08 23:05] LABS: Chlamydia by PCR Not Detected (NotDetected); GC by PCR Not Detected (NotDetected)
== END 2021-03-06 16:37 | disposition home or self-care (01) ==
LOC: ERS 14:33
DX: O20.8 Other hemorrhage in early pregnancy (principal); O99.891 Other specified diseases and conditions complicating pregnancy; R10.2 Pelvic and perineal pain; R10.9 Unspecified abdominal pain; O99.011 Anemia complicating pregnancy, first trimester; O99.511 Diseases of the respiratory system complicating pregnancy, first trimester; J45.909 Unspecified asthma, uncomplicated; Z3A.01 Less than 8 weeks gestation of pregnancy; Z87.891 Personal history of nicotine dependence
CPT/HCPCS: 36415; 76856; 81003; 81015; 81025; 84702; 87086; 87480; 87491; 87510; 87591; 87660; 99284; Q0162

== ENCOUNTER 2021-04-01 17:49 | Emergency (ER) | payer MEDICAID | END 2021-04-01 18:58 | disposition home or self-care (01) | LOC: ERS 17:49 | DX: O99.611 Diseases of the digestive system complicating pregnancy, first trimester (principal); K59.00 Constipation, unspecified; O99.511 Diseases of the respiratory system complicating pregnancy, first trimester; J45.909 Unspecified asthma, uncomplicated; Z87.891 Personal history of nicotine dependence; Z3A.10 10 weeks gestation of pregnancy | CPT/HCPCS: 99283 ==

== ENCOUNTER 2021-04-02 23:44 | Emergency (ER) | payer MEDICAID ==
[2021-04-03 00:49] LABS: Bilirubin Negative (Negative); Blood, Urine Negative (Negative); Glucose, Urine (Dipstick) Negative (Negative); Ketone, Urine Negative (Negative); Leukocyte Negative (Negative); Nitrite Negative (Negative); Protein, Urine (Dipstick) Negative (Neg-Trace); Urobilinogen 0.2 mg/dL (Less than 2); pH, Urine 6.5 (5.0-9.0)
[2021-04-03 00:51] LABS: Clarity Clear (Clear)
[2021-04-03 00:52] LABS: Pregnancy Test - Urine (BHCG) POSITIVE (Negative); Pregu Control Background? CLEAR/WHITE (CLR/WHITE); Pregu Control Bar Appear? YES (CONTROL BAR)
== END 2021-04-03 01:14 | disposition home or self-care (01) ==
LOC: ERS 23:44
DX: O20.9 Hemorrhage in early pregnancy, unspecified (principal); O99.511 Diseases of the respiratory system complicating pregnancy, first trimester; J45.909 Unspecified asthma, uncomplicated; Z87.891 Personal history of nicotine dependence; Z3A.10 10 weeks gestation of pregnancy
CPT/HCPCS: 81003; 81025; 99284

== ENCOUNTER 2021-04-05 22:02 | Emergency (ER) | payer MEDICAID, OTHER ==
[2021-04-05 22:37] LABS: Bilirubin Negative (Negative); Blood, Urine Negative (Negative); Glucose, Urine (Dipstick) Negative (Negative); Ketone, Urine Negative (Negative); Leukocyte Negative (Negative); Nitrite Negative (Negative); Protein, Urine (Dipstick) Negative (Neg-Trace); Urobilinogen 0.2 mg/dL (Less than 2); pH, Urine 5.5 (5.0-9.0)
[2021-04-05 22:40] LABS: Clarity Clear (Clear); Specific Gravity, Urine 1.005 (1.002-1.036)
[2021-04-05] MEDS ORDERED: Acetaminophen 500 MG TAB ONE ×2 (23:14)
== END 2021-04-06 00:22 | disposition home or self-care (01) ==
LOC: ERS 22:02
DX: O99.891 Other specified diseases and conditions complicating pregnancy (principal); M25.551 Pain in right hip; R10.2 Pelvic and perineal pain; R10.9 Unspecified abdominal pain; O99.511 Diseases of the respiratory system complicating pregnancy, first trimester; J45.909 Unspecified asthma, uncomplicated; O99.011 Anemia complicating pregnancy, first trimester; Z87.891 Personal history of nicotine dependence; Z3A.10 10 weeks gestation of pregnancy
CPT/HCPCS: 36415; 76856; 81003; 84702; 93976

== ENCOUNTER 2021-04-09 22:57 | Emergency (ER) | payer OTHER ==
[2021-04-10 00:06] LABS: Bilirubin Negative (Negative); Blood, Urine Trace (Negative); Glucose, Urine (Dipstick) Negative (Negative); Ketone, Urine Negative (Negative); Leukocyte Small (Negative); Nitrite Negative (Negative); Protein, Urine (Dipstick) Negative (Neg-Trace); Urobilinogen 0.2 mg/dL (Less than 2); pH, Urine 5.5 (5.0-9.0)
[2021-04-10 00:07] LABS: Bacteria/HPF None Seen HPF (None Seen); RBC/HPF 0-3 HPF (0-3)
[2021-04-10 00:08] LABS: Clarity Clear (Clear); Pregnancy Test - Urine (BHCG) POSITIVE (Negative); Specific Gravity 1.021 (1.002-1.036); Specific Gravity, Urine 1.021 (1.002-1.036)
[2021-04-10 00:09] LABS: Pregu Control Background? CLEAR/WHITE (CLR/WHITE); Pregu Control Bar Appear? YES (CONTROL BAR)
== END 2021-04-10 01:22 | disposition home or self-care (01) ==
LOC: ERS 22:57
DX: O9A.211 Injury, poisoning and certain other consequences of external causes complicating pregnancy, first trimester (principal); L29.9 Pruritus, unspecified; T36.0X5A Adverse effect of penicillins, initial encounter; Z87.891 Personal history of nicotine dependence; O99.511 Diseases of the respiratory system complicating pregnancy, first trimester; J45.909 Unspecified asthma, uncomplicated; Z3A.09 9 weeks gestation of pregnancy
CPT/HCPCS: 81003; 81015; 81025; 99283

== ENCOUNTER 2021-07-06 12:26 | Emergency (ER) | payer OTHER | END 2021-07-06 16:23 | disposition left against medical advice (07) | LOC: ERS 12:26 | DX: Z53.21 Procedure and treatment not carried out due to patient leaving prior to being seen by health care provider (principal) ==

== ENCOUNTER 2021-08-14 15:18 | Emergency (ER) | payer OTHER | END 2021-08-14 16:12 | disposition home or self-care (01) | LOC: ERS 15:18 | DX: H92.02 Otalgia, left ear (principal); D64.9 Anemia, unspecified | CPT/HCPCS: 99281 ==

== ENCOUNTER 2022-04-08 20:17 | Emergency (ER) | payer OTHER ==
[2022-04-08 21:03] LABS: Bilirubin Negative (Negative); Blood, Urine Trace (Negative); Clarity Clear (Clear); Glucose, Urine (Dipstick) Normal (Negative); Ketone, Urine Negative (Negative); Leukocyte 250 Leu/uL (Negative); Nitrite Negative (Negative); Protein, Urine (Dipstick) Negative (Neg-Trace); RBC/HPF 0-3 HPF (0-3); Specific Gravity, Urine 1.019 (1.002-1.036); Urobilinogen Normal mg/dL (Less than 2); pH, Urine 5.5 (5.0-9.0)
[2022-04-08 21:05] LABS: Pregnancy Test - Urine (BHCG) Negative (Negative); Pregu Control Background? CLEAR/WHITE (CLR/WHITE); Pregu Control Bar Appear? YES (CONTROL BAR); Specific Gravity 1.019 (1.002-1.036)
[2022-04-08 21:19] LABS: Bacteria/HPF 1+ HPF (None Seen)
[2022-04-08] MEDS ORDERED: diphenhydrAMINE 25 MG CAP ONE (22:39)
[2022-04-08] MEDS ORDERED: cefTRIAXone\\ROCEPHIN 500 MG VIAL ONE (22:39)
[2022-04-08] MEDS ORDERED: Sterile Water 10 ML ONE (22:40)
[2022-04-09 15:00] LABS: Chlamydia by PCR DETECTED (NotDetected); GC by PCR Not Detected (NotDetected)
== END 2022-04-08 23:05 | disposition home or self-care (01) ==
LOC: ERS 20:17
DX: N73.9 Female pelvic inflammatory disease, unspecified (principal); F17.210 Nicotine dependence, cigarettes, uncomplicated; D64.9 Anemia, unspecified
CPT/HCPCS: 81003; 81015; 81025; 87086; 87480; 87491; 87510; 87591; 87660; 96372; 99283; J0696

== ENCOUNTER 2023-10-14 00:44 | Emergency (ER) | payer OTHER | END 2023-10-14 01:59 | disposition home or self-care (01) | LOC: ERS 00:44 | DX: J11.1 Influenza due to unidentified influenza virus with other respiratory manifestations (principal); F17.210 Nicotine dependence, cigarettes, uncomplicated; F17.290 Nicotine dependence, other tobacco product, uncomplicated | CPT/HCPCS: 99283 ==